=== PATIENT | male | born 1950 | race African-American/Black ===

== ENCOUNTER 2017-01-04 18:28 | Inpatient (IN) | payer BC, OTHER ==
[~2017-01-04] VITALS: Ht 210.8 cm; Wt 154.2 kg
[~2017-01-04 18:28] MED LIST: AMLO10TA80 PO; CARV6.2548 PO; CLON0.1T PO; COLC0.6T66 PO; ENTRESTO PO; FURO-151 PO; LETAIRIS PO; LINA5TAB PO; RIVA10TA PO; TAMS-11 PO; VALS160T2 PO
[2017-01-04] MEDS ORDERED: CETI10TA6 PO (18:33)
[2017-01-04] MEDS ORDERED: RIVA10TA PO (18:33)
[2017-01-04] MEDS ORDERED: CLON0.1T PO (18:33)
[2017-01-04] MEDS ORDERED: LINA5TAB PO (18:33)
[2017-01-04] MEDS ORDERED: SPIR25TA4 PO (18:33)
[2017-01-04] MEDS ORDERED: NAPROXEN 500MG TABLET PO ONE (18:45)
[2017-01-04] MEDS ORDERED: COLCHICINE 0.6MG TABLET PO ONE (18:45)
[2017-01-04 23:51] LABS: BASOPHILS % 0.7 % (0.0-2.0); EOSINOPHILS % 0.4 % (0.0-5.0); HEMATOCRIT. 40.3 % (42.0-52.0); HEMOGLOBIN. 13.3 g/dL (14.0-18.0); LYMPHOCYTES % 16.9 % (20.0-50.0); MEAN CORPUSCULAR HEMOGLOBIN 29.2 pg (28.0-32.0); MEAN CORPUSCULAR VOLUME 88.7 fL (80.0-94.0); MEAN PLATELET VOLUME 8.1 fl (7.4-10.4); MONOCYTES % 11.5 % (2.0-8.0); NEUTROPHILS % 70.5 % (40.0-76.0); PLATELET 163 x1000/uL (130-400); RED BLOOD CELL COUNT 4.54 mill/uL (4.7-6.1)
[2017-01-05 00:20] LABS: CARBON DIOXIDE 26 mEq/L (21-32); CHLORIDE 104 mEq/L (98-107); TROPONIN I < 0.02 ng/mL (0.00-0.04)
[2017-01-05] MEDS ORDERED: POTASSIUM CHLORIDE 20MEQ TABLET SR PO ONE (02:45)
[2017-01-05 04:35] VITALS: BP 138/97
[2017-01-05] MEDS ORDERED: ACETAMINOPHEN 325MG TABLET PO PRN (06:15)
[2017-01-05] MEDS ORDERED: HYDROCODONE/ACETAMINOPHEN 5/325MG TABLET PO PRN (06:15)
[2017-01-05] MEDS ORDERED: ONDANSETRON HCL 4MG/2ML VIAL IV PRN (06:15)
[2017-01-05 08:00] VITALS: BP 114/63
[2017-01-05] MEDS ORDERED: VANCOMYCIN 2,000 MG in DEXT 5% WATER 500 ML IV SCH (08:00)
[2017-01-05] MEDS ORDERED: CLONIDINE 0.1MG TABLET PO PRN (08:00)
[2017-01-05] MEDS: FUROSEMIDE 40MG/4ML VIAL IVP SCH ×2 (08:43→13:10)
[2017-01-05] MEDS: CETIRIZINE 10MG TABLET PO SCH (08:43)
[2017-01-05] MEDS: COLCHICINE 0.6MG TABLET PO SCH (08:43)
[2017-01-05] MEDS: LINAGLIPTIN 5MG TABLET PO SCH (08:44)
[2017-01-05] MEDS: CARVEDILOL 6.25 MG TABLET PO SCH ×2 (08:47→20:57)
[2017-01-05] MEDS ORDERED: CLONIDINE 0.1MG TABLET PO SCH (09:00)
[2017-01-05] MEDS ORDERED: NON FORMULARY PATIENT HOME MED EA XX SCH ×2 (09:00)
[2017-01-05] MEDS ORDERED: DEXTROSE 50% WATER 50ML SYRINGE IV PRN (09:30)
[2017-01-05 11:23] LABS: HEPATITIS B SURFACE ANTIGEN NEGATIVE
[2017-01-05 11:51] LABS: HEPATITIS B CORE AB IGM NEGATIVE
[2017-01-05 12:00] VITALS: BP 123/73
[2017-01-05] MEDS: BLOOD SUGAR DIAGNOSTIC STRIP TEST SCH ×3 (12:05→20:58)
[2017-01-05] MEDS: INSULIN LISPRO 100 UNITS/ML SUBCUT SCH ×3 (12:05→21:00)
[2017-01-05] MEDS ORDERED: COLCHICINE 0.6MG TABLET PO NR (13:00)
[2017-01-05 16:00] VITALS: BP 107/76
[2017-01-05] MEDS ORDERED: TAMS-11 PO (16:42)
[2017-01-05] MEDS ORDERED: SPIR25TA4 PO (16:42)
[2017-01-05] MEDS ORDERED: CETI10TA6 PO (16:42)
[2017-01-05] MEDS ORDERED: AMLO10TA80 PO (16:42)
[2017-01-05] MEDS ORDERED: CARV6.2548 PO (16:42)
[2017-01-05] MEDS ORDERED: VALS160T2 PO (16:42)
[2017-01-05] MEDS ORDERED: FURO-151 PO (16:42)
[2017-01-05] MEDS ORDERED: CLON0.1T PO (16:42)
[2017-01-05] MEDS ORDERED: LETAIRIS PO (16:42)
[2017-01-05] MEDS ORDERED: COLC0.6T66 PO (16:42)
[2017-01-05] MEDS ORDERED: LINA5TAB PO (16:42)
[2017-01-05] MEDS ORDERED: ENTRESTO PO (16:44)
[2017-01-05] MEDS ORDERED: RIVA10TA PO (16:44)
[2017-01-05] MEDS: RIVAROXABAN 15 MG TABLET PO SCH (17:34)
[2017-01-05 20:00] VITALS: BP 117/74
[2017-01-05] MEDS ORDERED: VANCOMYCIN 750 MG PREMIX 150 ML IV SCH (20:00)
[2017-01-05 20:28] LABS: BASOPHILS % 0.2 % (0.0-2.0); CHLORIDE 103 mEq/L (98-107); EOSINOPHILS % 1.1 % (0.0-5.0); HEMATOCRIT. 41.8 % (42.0-52.0); HEMOGLOBIN. 13.8 g/dL (14.0-18.0); MEAN CORPUSCULAR HEMOGLOBIN 29.2 pg (28.0-32.0); MEAN CORPUSCULAR VOLUME 88.6 fL (80.0-94.0); MEAN PLATELET VOLUME 8.6 fl (7.4-10.4); MONOCYTES % 10.1 % (2.0-8.0); NEUTROPHILS % 70.6 % (40.0-76.0); PLATELET 162 x1000/uL (130-400); RED BLOOD CELL COUNT 4.71 mill/uL (4.7-6.1); RED CELL DISTRIBUTION WIDTH 13.7 % (11.6-14.6)
[2017-01-05 20:38] LABS: CARBON DIOXIDE 28 mEq/L (21-32)
[2017-01-05] MEDS ORDERED: SPIRONOLACTONE 5MG/ML 1ML ORAL SYR(NEO) PO SCH (21:00)
[2017-01-05] MEDS ORDERED: SPIRONOLACTONE 25MG TABLET PO SCH (21:00)
[2017-01-05] MEDS ORDERED: RIVAROXABAN 10 MG TABLET PO SCH (21:00)
[2017-01-05] MEDS ORDERED: TAMSULOSIN HCL 0.4MG SR CAPSULE PO SCH (21:00)
[2017-01-06] VITALS (7 sets, daily range): BP systolic 97–129; BP diastolic 57–92
[2017-01-06] MEDS ORDERED: VANCOMYCIN 1500MG in DEXTROSE 5% WATER 250ML IV SCH (03:00)
[2017-01-06] MEDS: BLOOD SUGAR DIAGNOSTIC STRIP TEST SCH ×3 (07:40→18:06)
[2017-01-06] MEDS: INSULIN LISPRO 100 UNITS/ML SUBCUT SCH ×3 (08:10→18:06)
[2017-01-06] MEDS: CETIRIZINE 10MG TABLET PO SCH (09:00)
[2017-01-06] MEDS: FUROSEMIDE 40MG/4ML VIAL IVP SCH ×2 (09:00→09:26)
[2017-01-06] MEDS: CARVEDILOL 6.25 MG TABLET PO SCH (09:25)
[2017-01-06] MEDS: LINAGLIPTIN 5MG TABLET PO SCH (09:25)
[2017-01-06] MEDS: COLCHICINE 0.6MG TABLET PO SCH (09:25)
[2017-01-06] MEDS ORDERED: POTASSIUM CHLORIDE 20MEQ TABLET SR PO NR (15:45)
[2017-01-06] MEDS ORDERED: FUROSEMIDE 40MG/4ML VIAL IVP SCH (17:15)
[2017-01-06 17:47] LABS: BASOPHILS % 0.3 % (0.0-2.0); EOSINOPHILS % 1.5 % (0.0-5.0); HEMATOCRIT. 41.1 % (42.0-52.0); HEMOGLOBIN. 13.6 g/dL (14.0-18.0); MEAN CORPUSCULAR HEMOGLOBIN 29.6 pg (28.0-32.0); MEAN CORPUSCULAR VOLUME 89.8 fL (80.0-94.0); MEAN PLATELET VOLUME 8.7 fl (7.4-10.4); MONOCYTES % 11.4 % (2.0-8.0); NEUTROPHILS % 67.8 % (40.0-76.0); PLATELET 173 x1000/uL (130-400); RED BLOOD CELL COUNT 4.57 mill/uL (4.7-6.1)
[2017-01-06 17:49] LABS: *AMPHETAMINES SCREEN URINE NEGATIVE (NEGATIVE); *BARBITURATES SCREEN URINE NEGATIVE (NEGATIVE); *BENZODIAZEPINES SCREEN URINE NEGATIVE (NEGATIVE); *COCAINE SCREEN URINE NEGATIVE (NEGATIVE); CANNABINOID URINE SCREEN PRESUMTIVE POSITIVE (NEGATIVE); METHADONE URINE SCREEN NEGATIVE (NEGATIVE); OPIATES URINE SCREEN PRESUMTIVE POSITIVE (NEGATIVE); PHENCYCLIDINE URINE SCREEN NEGATIVE (NEGATIVE)
[2017-01-06 17:57] LABS: INR 1.1; PARTIAL THROMBOPLASTIN TIME 30.6 sec (23.4-31.0); PROTHROMBIN TIME 11.8 sec (9.4-11.6)
[2017-01-06] MEDS: RIVAROXABAN 15 MG TABLET PO SCH (18:00)
[2017-01-06 18:04] LABS: CARBON DIOXIDE 29 mEq/L (21-32); CHLORIDE 102 mEq/L (98-107)
[2017-01-07 15:27] LABS: HEPATITIS A AB IGM NEGATIVE (NEGATIVE)
== END 2017-01-06 20:45 | disposition short-term general hospital (02) | DRG 291 ==
LOC: ER 18:28 → 7WST 01-05 02:58 → ENRESERV 01-05 03:37 → 7WST 01-05 05:55
PROVIDERS: ADMIT Family Medicine; ATTEND Family Medicine
DX: I13.0 Hypertensive heart and chronic kidney disease with heart failure and stage 1 through stage 4 chronic kidney disease, or unspecified chronic kidney disease (principal); E43 Unspecified severe protein-calorie malnutrition; N17.0 Acute kidney failure with tubular necrosis; E11.22 Type 2 diabetes mellitus with diabetic chronic kidney disease; L03.115 Cellulitis of right lower limb; I42.9 Cardiomyopathy, unspecified; L03.116 Cellulitis of left lower limb; I48.91 Unspecified atrial fibrillation; J44.9 Chronic obstructive pulmonary disease, unspecified; E66.01 Morbid (severe) obesity due to excess calories; I50.23 Acute on chronic systolic (congestive) heart failure; R91.1 Solitary pulmonary nodule; D63.1 Anemia in chronic kidney disease; I25.10 Atherosclerotic heart disease of native coronary artery without angina pectoris; M10.9 Gout, unspecified; N18.9 Chronic kidney disease, unspecified; N40.0 Benign prostatic hyperplasia without lower urinary tract symptoms; Z88.0 Allergy status to penicillin; Z68.34 Body mass index [BMI] 34.0-34.9, adult; Z79.899 Other long term (current) drug therapy; Z91.14 Patient's other noncompliance with medication regimen; Z95.810 Presence of automatic (implantable) cardiac defibrillator; Z87.891 Personal history of nicotine dependence; Z86.73 Personal history of transient ischemic attack (TIA), and cerebral infarction without residual deficits; Z82.3 Family history of stroke; Z82.49 Family history of ischemic heart disease and other diseases of the circulatory system
CPT/HCPCS: 36415; 71010; 71250; 73620; 74176; 76770; 80053; 80305; 82962; 83036; 83880; 84484; 84550; 85025; 85610; 85651; 85730; 86705; 86709; 86803; 87040; 87340; 93005; 99285; J1940; J3370; J7040; J7060

== ENCOUNTER 2018-12-31 11:20 | Emergency (ER) | payer BC, OTHER ==
[~2018-12-31] VITALS: Ht 185.4 cm; Wt 145.0 kg
[~2018-12-31 11:20] MED LIST changes: +CETI10TA6 PO; +SPIR25TA6 PO
[2018-12-31] MEDS ORDERED: FUROSEMIDE 40MG/4ML VIAL IV ONE (12:15)
[2018-12-31] MEDS ORDERED: ASPIRIN 81MG TABLET PO ONE (12:15)
[2018-12-31] MEDS ORDERED: NITROGLYCERIN 0.4MG TABLET SL SL PRN (12:15)
[2018-12-31 12:53] LABS: EOSINOPHILS % 5.5 % (0.0-5.0); HEMOGLOBIN. 13.6 g/dL (14.0-18.0); LYMPHOCYTES % 23.5 % (20.0-50.0); MEAN CORPUSCULAR HEMOGLOBIN 30.6 pg (28.0-32.0); MEAN CORPUSCULAR VOLUME 92.1 fL (80.0-94.0); MEAN PLATELET VOLUME 7.9 fl (7.4-10.4); MONOCYTES % 8.1 % (2.0-8.0); NEUTROPHILS % 61.9 % (40.0-76.0); PLATELET 162 x1000/uL (130-400); RED BLOOD CELL COUNT 4.45 mill/uL (4.7-6.1); RED CELL DISTRIBUTION WIDTH 13.6 % (11.6-14.6)
[2018-12-31 13:00] LABS: CHLORIDE 108 mEq/L (98-107)
[2018-12-31 19:07] VITALS: BP 116/83
== END 2018-12-31 19:09 | disposition short-term general hospital (02) ==
LOC: ER 11:20
DX: I50.9 Heart failure, unspecified (principal); I45.10 Unspecified right bundle-branch block; N28.9 Disorder of kidney and ureter, unspecified; J44.9 Chronic obstructive pulmonary disease, unspecified; Z88.0 Allergy status to penicillin
CPT/HCPCS: 36415; 71045; 80053; 83880; 84484; 85025; 93005; 96374; 99285; J1940

== ENCOUNTER 2020-12-02 05:32 | Inpatient (IN) | payer BC, MEDICAID ==
[~2020-12-02] VITALS: Ht 185.4 cm; Wt 141.5 kg
[~2020-12-02 05:32] MED LIST changes: +ALLO100T MT; +GLIP5TAB12 MT
[2020-12-02] MEDS ORDERED: ACETAMINOPHEN 325MG TABLET PO STA (06:03)
[2020-12-02] MEDS ORDERED: CEFTRIAXONE 1 G PREMIX 50 ML IV ONE (06:15)
[2020-12-02 06:45] LABS: BASOPHILS % 0.6 % (0.0-2.0); EOSINOPHILS % 1.4 % (0.0-5.0); HEMATOCRIT. 36.1 % (42.0-52.0); HEMOGLOBIN. 11.8 g/dL (14.0-18.0); LYMPHOCYTES % 18.5 % (20.0-50.0); MEAN CORPUSCULAR VOLUME 88.8 fL (80.0-94.0); MEAN PLATELET VOLUME 8.3 fl (7.4-10.4); MONOCYTES % 11.9 % (2.0-8.0); NEUTROPHILS % 67.6 % (40.0-76.0); PLATELET 176 x1000/uL (130-400); RED BLOOD CELL COUNT 4.07 mill/uL (4.7-6.1); RED CELL DISTRIBUTION WIDTH 14.6 % (11.6-14.6)
[2020-12-02] MEDS ORDERED: ONDANSETRON HCL 4MG/2ML INJ IV PRN (10:45)
[2020-12-02] MEDS ORDERED: CEFTRIAXONE 1 G PREMIX 50 ML IV SCH (10:45)
[2020-12-02] MEDS ORDERED: ACETAMINOPHEN 325MG TABLET PO PRN (10:45)
[2020-12-02] MEDS: AMLODIPINE 10MG TABLET PO SCH (11:04)
[2020-12-02] MEDS ORDERED: VANCOMYCIN 1 G PREMIX 200 ML IV NR ×2 (11:15→14:00)
[2020-12-02 11:30] VITALS: BP 172/100
[2020-12-02] MEDS: METHYLPREDNISOLONE SOD SUCC 40 MG/ML VIAL IV SCH ×2 (13:00→20:29)
[2020-12-02] MEDS: FUROSEMIDE 40MG/4ML VIAL IVP SCH (13:00)
[2020-12-02 13:22] VITALS: BP 172/100
[2020-12-02] MEDS ORDERED: CLONIDINE 0.2MG TABLET PO PRN (13:30)
[2020-12-02] MEDS ORDERED: LOSARTAN POTASSIUM 25 MG TABLET PO SCH (13:30)
[2020-12-02] MEDS: CLONIDINE 0.1MG TABLET PO PRN (14:05)
[2020-12-02] MEDS ORDERED: DILTIAZEM HCL 5MG/ML 5ML VIAL IV NR (15:00)
[2020-12-02] MEDS ORDERED: HYDROCODONE/ACETAMINOPHEN 5/325MG TABLET PO PRN (15:30)
[2020-12-02] MEDS ORDERED: NALOXONE HCL 0.4MG/ML VIAL IV PRN (15:45)
[2020-12-02] MEDS ORDERED: VANCOMYCIN 2,000 MG in DEXT 5% WATER 500 ML IV NR (16:00)
[2020-12-02 16:20] VITALS: BP 177/111
[2020-12-02] MEDS ORDERED: RIVAROXABAN 20 MG TABLET PO SCH (17:00)
[2020-12-02] MEDS: ENOXAPARIN 150MG/ML SYR SUBCUT SCH (18:11)
[2020-12-02 20:00] VITALS: BP 150/99
[2020-12-02] MEDS: CARVEDILOL 12.5MG TABLET PO SCH (20:30)
[2020-12-02] MEDS: FAMOTIDINE 20MG TABLET PO SCH (20:30)
[2020-12-02] MEDS ORDERED: LOSARTAN POTASSIUM 50 MG TABLET PO SCH (21:00)
[2020-12-02] MEDS ORDERED: CARVEDILOL 6.25 MG TABLET PO SCH (21:00)
[2020-12-03] VITALS (7 sets, daily range): BP systolic 125–161; BP diastolic 58–110
[2020-12-03] MEDS: CLONIDINE 0.1MG TABLET PO PRN (00:03)
[2020-12-03] MEDS: METHYLPREDNISOLONE SOD SUCC 40 MG/ML VIAL IV SCH ×3 (04:03→20:00)
[2020-12-03] MEDS: ENOXAPARIN 150MG/ML SYR SUBCUT SCH (05:26)
[2020-12-03 07:20] LABS: D-DIMER 0.46 mg/L FEU (<0.50); INR 1.2; PROTHROMBIN TIME 12.4 sec (9.6-11.0)
[2020-12-03 07:27] LABS: BASOPHILS % 0.1 % (0.0-2.0); HEMATOCRIT. 36.3 % (42.0-52.0); LYMPHOCYTES % 9.4 % (20.0-50.0); MEAN CORPUSCULAR HEMOGLOBIN 29.5 pg (28.0-32.0); MEAN CORPUSCULAR VOLUME 88.9 fL (80.0-94.0); MEAN PLATELET VOLUME 8.7 fl (7.4-10.4); MONOCYTES % 2.5 % (2.0-8.0); PLATELET 178 x1000/uL (130-400); RED BLOOD CELL COUNT 4.08 mill/uL (4.7-6.1); RED CELL DISTRIBUTION WIDTH 14.4 % (11.6-14.6)
[2020-12-03 07:31] LABS: CHLORIDE 108 mEq/L (98-107)
[2020-12-03] MEDS ORDERED: CEFTRIAXONE 1,000 MG in DEXTROSE 5% WATER 50 ML IV SCH (09:00)
[2020-12-03] MEDS ORDERED: LOSARTAN POTASSIUM 25 MG TABLET PO SCH (09:00)
[2020-12-03] MEDS: FUROSEMIDE 40MG/4ML VIAL IVP SCH (09:18)
[2020-12-03] MEDS: CARVEDILOL 12.5MG TABLET PO SCH ×2 (09:18→16:47)
[2020-12-03] MEDS: FAMOTIDINE 20MG TABLET PO SCH (09:18)
[2020-12-03] MEDS: AMLODIPINE 10MG TABLET PO SCH (09:19)
[2020-12-03] MEDS ORDERED: VANCOMYCIN 1250MG in DEXTROSE 5% WATER 250ML IV SCH ×2 (12:00→20:00)
[2020-12-03] MEDS ORDERED: DEXTROSE 50% WATER 50ML SYRINGE IV PRN (12:45)
[2020-12-03] MEDS: INSULIN LISPRO 100 UNITS/ML SUBCUT SCH ×2 (13:31→17:10)
[2020-12-03] MEDS ORDERED: CLONIDINE 0.1MG TABLET PO NR (15:00)
[2020-12-03] MEDS ORDERED: LOSARTAN POTASSIUM 25 MG TABLET PO NR (15:00)
[2020-12-03] MEDS ORDERED: BLOOD SUGAR DIAGNOSTIC STRIP TEST SCH (17:10)
[2020-12-03] MEDS ORDERED: ENOXAPARIN 150MG/ML SYR SUBCUT SCH (21:00)
== END 2020-12-03 21:35 | disposition home or self-care (01) | DRG 602 ==
LOC: ER 06:00 → ENRESERV 10:32 → 6EST 12:26 → 8WST 14:32
PROVIDERS: ADMIT Internal Medicine; ATTEND Internal Medicine
DX: L03.115 Cellulitis of right lower limb (principal); I50.23 Acute on chronic systolic (congestive) heart failure; I13.0 Hypertensive heart and chronic kidney disease with heart failure and stage 1 through stage 4 chronic kidney disease, or unspecified chronic kidney disease; I48.21 Permanent atrial fibrillation; Z68.41 Body mass index [BMI] 40.0-44.9, adult; N17.9 Acute kidney failure, unspecified; M10.9 Gout, unspecified; L03.116 Cellulitis of left lower limb; E11.22 Type 2 diabetes mellitus with diabetic chronic kidney disease; N18.9 Chronic kidney disease, unspecified; I25.5 Ischemic cardiomyopathy; J44.9 Chronic obstructive pulmonary disease, unspecified; E66.01 Morbid (severe) obesity due to excess calories; I16.0 Hypertensive urgency; D64.9 Anemia, unspecified; I25.10 Atherosclerotic heart disease of native coronary artery without angina pectoris; K46.9 Unspecified abdominal hernia without obstruction or gangrene; I25.2 Old myocardial infarction; Z79.01 Long term (current) use of anticoagulants; Z95.810 Presence of automatic (implantable) cardiac defibrillator; Z88.0 Allergy status to penicillin; Z79.899 Other long term (current) drug therapy; Z95.5 Presence of coronary angioplasty implant and graft
CPT/HCPCS: 36415; 71045; 73610; 80048; 82962; 83605; 83735; 83880; 84145; 84484; 84550; 85025; 85379; 93005; 93970; 99285; J0696; J1650; J1815; J1940; J2920; J3370; J3490; J7060

== ENCOUNTER 2021-08-14 12:00 | Emergency (ER) | payer BC, MEDICAID ==
[~2021-08-14] VITALS: Ht 180.3 cm; Wt 140.0 kg
[2021-08-14 12:15] VITALS: BP 148/88
[2021-08-14] MEDS ORDERED: ACETAMINOPHEN 325MG TABLET PO ONE (14:45)
[2021-08-14 15:14] LABS: BASOPHILS % 0.7 % (0.0-2.0); EOSINOPHILS % 2.4 % (0.0-5.0); HEMOGLOBIN. 14.2 g/dL (14.0-18.0); LYMPHOCYTES % 31.8 % (20.0-50.0); MEAN CORPUSCULAR HEMOGLOBIN 27.7 pg (28.0-32.0); MEAN CORPUSCULAR VOLUME 86.1 fL (80.0-94.0); MEAN PLATELET VOLUME 8.1 fl (7.4-10.4); MONOCYTES % 10.4 % (2.0-8.0); NEUTROPHILS % 54.7 % (40.0-76.0); PLATELET 194 x1000/uL (130-400); RED BLOOD CELL COUNT 5.11 mill/uL (4.7-6.1); RED CELL DISTRIBUTION WIDTH 15.2 % (11.6-14.6)
[2021-08-14 15:22] LABS: INR 1.1; PARTIAL THROMBOPLASTIN TIME 27.4 sec (23.4-31.0); PROTHROMBIN TIME 11.9 sec (9.6-11.0)
[2021-08-14 15:25] LABS: CHLORIDE 108 mEq/L (98-107)
[2021-08-14] MEDS ORDERED: TOPUD MT (16:47)
[2021-08-14] MEDS ORDERED: ACETAMINOPHEN 325MG TABLET PO NR (17:00)
== END 2021-08-14 17:12 | disposition home or self-care (01) ==
LOC: ER 12:00
DX: R51.9 Headache, unspecified (principal); E11.9 Type 2 diabetes mellitus without complications; Z79.899 Other long term (current) drug therapy; W18.30XA Fall on same level, unspecified, initial encounter; Y93.89 Activity, other specified; Y92.89 Other specified places as the place of occurrence of the external cause; Y99.8 Other external cause status
CPT/HCPCS: 36415; 72192; 73110; 73130; 73560; 80053; 85025; 86850; 86900; 93005; 99285

== ENCOUNTER 2021-09-29 06:58 | Inpatient (IN) | payer BC, MEDICAID, MEDICARE ==
[~2021-09-29] VITALS: Ht 185.4 cm; Wt 145.1 kg
[~2021-09-29 06:58] MED LIST changes: +TOPUD MT
[2021-09-29] MEDS ORDERED: SODIUM CHLORIDE 0.9% 1000ML BAG (SEPSIS BOLUS) IV ONE (07:15)
[2021-09-29 07:39] LABS: BASOPHILS % 0.7 % (0.0-2.0); EOSINOPHILS % 1.5 % (0.0-5.0); HEMATOCRIT. 34.9 % (42.0-52.0); HEMOGLOBIN. 10.8 g/dL (14.0-18.0); LYMPHOCYTES % 39.6 % (20.0-50.0); MEAN CORPUSCULAR HEMOGLOBIN 27.7 pg (28.0-32.0); MEAN CORPUSCULAR VOLUME 89.3 fL (80.0-94.0); MEAN PLATELET VOLUME 8.5 fl (7.4-10.4); MONOCYTES % 6.8 % (2.0-8.0); NEUTROPHILS % 51.4 % (40.0-76.0); PLATELET 185 x1000/uL (130-400); RED BLOOD CELL COUNT 3.91 mill/uL (4.7-6.1); RED CELL DISTRIBUTION WIDTH 15.9 % (11.6-14.6)
[2021-09-29 07:48] LABS: CHLORIDE 106 mEq/L (98-107)
[2021-09-29 07:50] LABS: INR 1.2; PROTHROMBIN TIME 12.7 sec (9.6-11.0)
[2021-09-29 07:58] LABS: CREATINE KINASE 76 IU/L (39-308)
[2021-09-29 08:20] LABS: BG BASE EXCESS -0.5 mmol/L (-2.0-2.0); BG CARBOXYHEMOGLOBIN 0.3 % (0.5-1.5); BG DEOXYHEMOGLOBIN 3.7 % (0.0-5.0); BG FRACTION INSPIRED OXYGEN 21; BG METHEMOGLOBIN 0.3 % (0.0-1.5); BG OXYGEN SATURATION 96.3 % (92.0-98.5); BG OXYHEMOGLOBIN 95.7 % (94.0-97.0); BG PCO2 33.6 mmHg (35.0-45.0); BG PH 7.453 (7.350-7.450); BG PO2 87.4 mmHg (75.0-100.0); BG SAMPLE SITE RIGHT BRACHIAL; BG TOTAL HEMOGLOBIN 10.5 g/dL (12.0-18.0); BG VENT MODE ROOM AIR
[2021-09-29] MEDS ORDERED: ONDANSETRON HCL 4MG/2ML INJ IV ONE (09:30)
[2021-09-29] MEDS ORDERED: PANTOPRAZOLE SODIUM 40 MG/VIAL IV ONE (09:30)
[2021-09-29] MEDS ORDERED: METRONIDAZOLE 500 MG PREMIX 100 ML IV ONE (10:45)
[2021-09-29] MEDS ORDERED: LEVOFLOXACIN 500MG PREMIX 100 ML IV ONE (10:45)
[2021-09-29] MEDS ORDERED: DEXTROSE 50% WATER 50ML SYRINGE IV PRN (12:00)
[2021-09-29] MEDS ORDERED: PANTOPRAZOLE SODIUM 40 MG/VIAL IV SCH (12:00)
[2021-09-29] MEDS ORDERED: ENOXAPARIN 40MG/0.4ML SYR SUBCUT SCH (12:00)
[2021-09-29] MEDS ORDERED: ACETAMINOPHEN 325MG TABLET PO PRN (12:00)
[2021-09-29] MEDS ORDERED: LEVOFLOXACIN 500MG PREMIX 100 ML IV SCH (12:00)
[2021-09-29] MEDS ORDERED: ONDANSETRON HCL 4MG/2ML INJ IV PRN (12:00)
[2021-09-29] MEDS ORDERED: IPRATROPIUM/ALBUTEROL 0.5-3(2.5)MG/3ML NEB NEB PRN (12:00)
[2021-09-29] MEDS ORDERED: LEVOFLOXACIN 250MG PREMIX 50 ML IV NR ×2 (13:00→15:00)
[2021-09-29] MEDS: BLOOD SUGAR DIAGNOSTIC STRIP TEST SCH ×3 (13:00→20:47)
[2021-09-29] MEDS ORDERED: METRONIDAZOLE 500 MG PREMIX 100 ML IV SCH (13:00)
[2021-09-29 13:31] LABS: CREATINE KINASE 56 IU/L (39-308); CREATINE KINASE MB FRACTION 1.8 ng/mL (0.5-3.6)
[2021-09-29 14:02] VITALS: BP 114/89
[2021-09-29] MEDS: INSULIN LISPRO 100 UNITS/ML SUBCUT SCH ×3 (14:22→20:50)
[2021-09-29] MEDS: METRONIDAZOLE 500 MG PREMIX 100 ML IV SCH ×2 (15:22→21:25)
[2021-09-29 16:04] VITALS: BP 116/68
[2021-09-29 16:08] VITALS: BP 116/68
[2021-09-29 17:44] VITALS: BP 106/69
[2021-09-29] MEDS: CARVEDILOL 6.25 MG TABLET PO SCH (17:44)
[2021-09-29 20:00] VITALS: BP 102/76
[2021-09-29] MEDS: TAMSULOSIN HCL 0.4MG SR CAPSULE PO SCH (20:47)
[2021-09-29] MEDS: RIVAROXABAN 15 MG TABLET PO SCH (20:47)
[2021-09-29] MEDS: PANTOPRAZOLE 40MG DR TABLET PO SCH (20:47)
[2021-09-29 22:00] VITALS: BP 100/72
[2021-09-30] VITALS (11 sets, daily range): BP systolic 98–128; BP diastolic 60–94
[2021-09-30 00:08] LABS: CLARITY URINE CLEAR (CLEAR); COLOR URINE YELLOW (YELLOW); KETONES URINE NEGATIVE (NEGATIVE); LEUKOCYTE ESTERASE URINE TRACE (NEGATIVE); NITRITE URINE NEGATIVE (NEGATIVE); OCCULT BLOOD URINE NEGATIVE (NEGATIVE); PROTEIN URINE NEGATIVE (NEGATIVE); SPECIFIC GRAVITY URINE 1.013 (1.005-1.030); UROBILINOGEN URINE 0.2 E.U./dL (0.2-1.0)
[2021-09-30 00:45] LABS: CREATINE KINASE MB FRACTION 1.8 ng/mL (0.5-3.6)
[2021-09-30] MEDS: METRONIDAZOLE 500 MG PREMIX 100 ML IV SCH ×3 (06:28→20:37)
[2021-09-30] MEDS: BLOOD SUGAR DIAGNOSTIC STRIP TEST SCH ×4 (06:28→20:36)
[2021-09-30] MEDS: PANTOPRAZOLE 40MG DR TABLET PO SCH ×2 (06:28→20:36)
[2021-09-30 06:51] LABS: BASOPHILS % 0.4 % (0.0-2.0); EOSINOPHILS % 1.6 % (0.0-5.0); HEMATOCRIT. 27.2 % (42.0-52.0); HEMOGLOBIN. 9.1 g/dL (14.0-18.0); LYMPHOCYTES % 33.3 % (20.0-50.0); MEAN CORPUSCULAR HEMOGLOBIN 28.7 pg (28.0-32.0); MEAN CORPUSCULAR VOLUME 85.7 fL (80.0-94.0); MEAN PLATELET VOLUME 8.3 fl (7.4-10.4); MONOCYTES % 9.5 % (2.0-8.0); NEUTROPHILS % 55.2 % (40.0-76.0); PLATELET 144 x1000/uL (130-400); RED BLOOD CELL COUNT 3.17 mill/uL (4.7-6.1); RED CELL DISTRIBUTION WIDTH 15.8 % (11.6-14.6)
[2021-09-30] MEDS: INSULIN LISPRO 100 UNITS/ML SUBCUT SCH ×4 (07:20→20:41)
[2021-09-30] MEDS ORDERED: FUROSEMIDE 40MG/4ML VIAL IVP SCH (09:00)
[2021-09-30] MEDS: AMLODIPINE 5MG TABLET PO SCH (10:04)
[2021-09-30] MEDS: CARVEDILOL 6.25 MG TABLET PO SCH ×2 (10:04→18:12)
[2021-09-30] MEDS: COLCHICINE 0.6MG TABLET PO SCH (10:04)
[2021-09-30] MEDS: CLONIDINE 0.1MG TABLET PO SCH (10:04)
[2021-09-30] MEDS: ALLOPURINOL 100 MG TABLET PO SCH (10:05)
[2021-09-30] MEDS ORDERED: POTASSIUM CHLORIDE 20MEQ TABLET SR PO NR (11:00)
[2021-09-30] MEDS: TAMSULOSIN HCL 0.4MG SR CAPSULE PO SCH (20:36)
[2021-09-30] MEDS: RIVAROXABAN 15 MG TABLET PO SCH (20:36)
[2021-10-01] VITALS (8 sets, daily range): BP systolic 112–142; BP diastolic 66–96
[2021-10-01] MEDS: BLOOD SUGAR DIAGNOSTIC STRIP TEST SCH ×2 (05:56→11:28)
[2021-10-01] MEDS: METRONIDAZOLE 500 MG PREMIX 100 ML IV SCH (05:56)
[2021-10-01] MEDS: PANTOPRAZOLE 40MG DR TABLET PO SCH (05:56)
[2021-10-01] MEDS: INSULIN LISPRO 100 UNITS/ML SUBCUT SCH ×2 (06:24→11:28)
[2021-10-01 07:09] LABS: BASOPHILS % 0.5 % (0.0-2.0); EOSINOPHILS % 2.2 % (0.0-5.0); HEMATOCRIT. 27.4 % (42.0-52.0); HEMOGLOBIN. 8.6 g/dL (14.0-18.0); LYMPHOCYTES % 33.9 % (20.0-50.0); MEAN CORPUSCULAR HEMOGLOBIN 28.7 pg (28.0-32.0); MEAN PLATELET VOLUME 8.3 fl (7.4-10.4); MONOCYTES % 8.4 % (2.0-8.0); PLATELET 144 x1000/uL (130-400); RED BLOOD CELL COUNT 3.01 mill/uL (4.7-6.1); RED CELL DISTRIBUTION WIDTH 15.6 % (11.6-14.6)
[2021-10-01] MEDS: COLCHICINE 0.6MG TABLET PO SCH (09:35)
[2021-10-01] MEDS: ALLOPURINOL 100 MG TABLET PO SCH (09:36)
[2021-10-01] MEDS: CLONIDINE 0.1MG TABLET PO SCH (09:36)
[2021-10-01] MEDS: CARVEDILOL 6.25 MG TABLET PO SCH (09:36)
[2021-10-01] MEDS: AMLODIPINE 5MG TABLET PO SCH (09:36)
[2021-10-01] MEDS ORDERED: LEVOFLOXACIN 500MG TABLET PO SCH (11:00)
[2021-10-01] MEDS ORDERED: LEVOFLOXACIN 750MG PREMIX 150 ML IV SCH (13:00)
[2021-10-02] MEDS ORDERED: METRONIDAZOLE 500MG TABLET PO SCH (06:00)
== END 2021-10-01 16:45 | disposition home or self-care (01) | DRG 392 ==
LOC: ER 06:58 → 3WST 11:21 → EDBEDREQ 11:29 → EDBEDREQTM 11:29 → ENRESERV 11:35
PROVIDERS: ADMIT Internal Medicine Pulmonary Disease; ATTEND Internal Medicine Pulmonary Disease
DX: K52.9 Noninfective gastroenteritis and colitis, unspecified (principal); N17.9 Acute kidney failure, unspecified; I42.0 Dilated cardiomyopathy; I48.20 Chronic atrial fibrillation, unspecified; I50.22 Chronic systolic (congestive) heart failure; E44.1 Mild protein-calorie malnutrition; Z68.42 Body mass index [BMI] 45.0-49.9, adult; I11.0 Hypertensive heart disease with heart failure; J44.9 Chronic obstructive pulmonary disease, unspecified; E66.01 Morbid (severe) obesity due to excess calories; E11.9 Type 2 diabetes mellitus without complications; R79.89 Other specified abnormal findings of blood chemistry; E78.00 Pure hypercholesterolemia, unspecified; Z95.810 Presence of automatic (implantable) cardiac defibrillator; Z83.3 Family history of diabetes mellitus; Z79.4 Long term (current) use of insulin; Z79.899 Other long term (current) drug therapy; Z88.0 Allergy status to penicillin; I95.89 Other hypotension
CPT/HCPCS: 36415; 36600; 71045; 74176; 80048; 80053; 81003; 82375; 82550; 82553; 82805; 82962; 83605; 83735; 83880; 84145; 84484; 85025; 86850; 86900; 93005; 93970; 99291; C9113; J1815; J1956; J2405; J3490; J7030

== ENCOUNTER 2021-10-02 21:47 | Inpatient (IN) | payer BC, MEDICAID ==
[~2021-10-02] VITALS: Ht 185.4 cm; Wt 138.0 kg
[2021-10-02] MEDS ORDERED: SODIUM CHLORIDE 0.9% 1,000 ML IV ONE (22:15)
[2021-10-02 23:49] LABS: BASOPHILS % 0.5 % (0.0-2.0); EOSINOPHILS % 0.9 % (0.0-5.0); HEMATOCRIT. 25.6 % (42.0-52.0); HEMOGLOBIN. 8.1 g/dL (14.0-18.0); MEAN CORPUSCULAR HEMOGLOBIN 27.9 pg (28.0-32.0); MEAN CORPUSCULAR VOLUME 87.9 fL (80.0-94.0); MEAN PLATELET VOLUME 7.7 fl (7.4-10.4); MONOCYTES % 8.6 % (2.0-8.0); PLATELET 205 x1000/uL (130-400); RED BLOOD CELL COUNT 2.92 mill/uL (4.7-6.1); RED CELL DISTRIBUTION WIDTH 16.2 % (11.6-14.6)
[2021-10-02 23:57] LABS: CHLORIDE 104 mEq/L (98-107)
[2021-10-03] VITALS (9 sets, daily range): BP systolic 95–135; BP diastolic 55–91
[2021-10-03 00:02] LABS: CLARITY URINE CLEAR (CLEAR); COLOR URINE YELLOW (YELLOW); KETONES URINE TRACE (NEGATIVE); LEUKOCYTE ESTERASE URINE TRACE (NEGATIVE); NITRITE URINE NEGATIVE (NEGATIVE); OCCULT BLOOD URINE NEGATIVE (NEGATIVE); PROTEIN URINE TRACE (NEGATIVE); SPECIFIC GRAVITY URINE 1.016 (1.005-1.030)
[2021-10-03] MEDS ORDERED: ONDANSETRON HCL 4MG/2ML INJ IV PRN (06:45)
[2021-10-03] MEDS ORDERED: ZOLPIDEM TARTRATE 5MG TABLET PO PRN (06:45)
[2021-10-03] MEDS ORDERED: ACETAMINOPHEN 325MG TABLET PO PRN (06:45)
[2021-10-03] MEDS: CLONIDINE 0.1MG TABLET PO SCH (08:38)
[2021-10-03] MEDS: CARVEDILOL 6.25 MG TABLET PO SCH ×2 (08:38→20:36)
[2021-10-03] MEDS: LISINOPRIL 20MG TABLET PO SCH (08:39)
[2021-10-03] MEDS: AMLODIPINE 10MG TABLET PO SCH (08:40)
[2021-10-03] MEDS ORDERED: ALLOPURINOL 100 MG TABLET PO SCH (09:00)
[2021-10-03] MEDS: FUROSEMIDE 40MG TABLET PO SCH (09:00)
[2021-10-03] MEDS: LINAGLIPTIN 5MG TABLET PO SCH (09:00)
[2021-10-03 09:47] LABS: BASOPHILS % 0.5 % (0.0-2.0); EOSINOPHILS % 1.6 % (0.0-5.0); HEMATOCRIT. 22.2 % (42.0-52.0); HEMOGLOBIN. 7.1 g/dL (14.0-18.0); LYMPHOCYTES % 31.4 % (20.0-50.0); MEAN CORPUSCULAR HEMOGLOBIN 28.4 pg (28.0-32.0); MEAN CORPUSCULAR VOLUME 88.3 fL (80.0-94.0); MEAN PLATELET VOLUME 8.1 fl (7.4-10.4); MONOCYTES % 9.2 % (2.0-8.0); NEUTROPHILS % 57.3 % (40.0-76.0); PLATELET 190 x1000/uL (130-400); RED BLOOD CELL COUNT 2.51 mill/uL (4.7-6.1); RED CELL DISTRIBUTION WIDTH 16.1 % (11.6-14.6)
[2021-10-03 10:37] LABS: VITAMIN B12 SERUM 306 pg/mL (211-911)
[2021-10-03] MEDS ORDERED: DEXTROSE 50% WATER 50ML SYRINGE IV PRN (11:45)
[2021-10-03] MEDS: BLOOD SUGAR DIAGNOSTIC STRIP TEST SCH ×3 (12:21→20:20)
[2021-10-03] MEDS ORDERED: CARVEDILOL 12.5MG TABLET PO SCH (12:30)
[2021-10-03] MEDS: IRON SUCROSE COMPLEX 100 MG/5 ML ML IV SCH (13:09)
[2021-10-03] MEDS: INSULIN LISPRO 100 UNITS/ML SUBCUT SCH ×3 (13:11→20:35)
[2021-10-03] MEDS: TAMSULOSIN HCL 0.4MG SR CAPSULE PO SCH (20:35)
[2021-10-03] MEDS: SPIRONOLACTONE 25MG TABLET PO SCH (20:36)
[2021-10-03 21:36] LABS: BASOPHILS % 0.7 % (0.0-2.0); HEMATOCRIT. 22.4 % (42.0-52.0); HEMOGLOBIN. 7.1 g/dL (14.0-18.0); LYMPHOCYTES % 30.1 % (20.0-50.0); MEAN CORPUSCULAR HEMOGLOBIN 28.3 pg (28.0-32.0); MEAN CORPUSCULAR VOLUME 89.5 fL (80.0-94.0); MONOCYTES % 10.5 % (2.0-8.0); NEUTROPHILS % 56.7 % (40.0-76.0); PLATELET 206 x1000/uL (130-400); RED CELL DISTRIBUTION WIDTH 16.2 % (11.6-14.6)
[2021-10-03 21:58] LABS: FOLIC ACID (FOLATE) SERUM 12.6 ng/mL (>5.38)
[2021-10-04] VITALS (13 sets, daily range): BP systolic 95–130; BP diastolic 60–87
[2021-10-04 06:27] LABS: BASOPHILS % 0.6 % (0.0-2.0); EOSINOPHILS % 1.9 % (0.0-5.0); HEMATOCRIT. 22.9 % (42.0-52.0); HEMOGLOBIN. 7.5 g/dL (14.0-18.0); LYMPHOCYTES % 31.8 % (20.0-50.0); MEAN CORPUSCULAR HEMOGLOBIN 28.4 pg (28.0-32.0); MEAN CORPUSCULAR VOLUME 86.6 fL (80.0-94.0); MEAN PLATELET VOLUME 7.8 fl (7.4-10.4); MONOCYTES % 9.6 % (2.0-8.0); NEUTROPHILS % 56.1 % (40.0-76.0); PLATELET 183 x1000/uL (130-400); RED BLOOD CELL COUNT 2.65 mill/uL (4.7-6.1); RED CELL DISTRIBUTION WIDTH 16.3 % (11.6-14.6)
[2021-10-04] MEDS: BLOOD SUGAR DIAGNOSTIC STRIP TEST SCH ×4 (07:33→20:13)
[2021-10-04] MEDS: CLONIDINE 0.1MG TABLET PO SCH (08:01)
[2021-10-04] MEDS: CARVEDILOL 6.25 MG TABLET PO SCH ×2 (08:02→20:24)
[2021-10-04] MEDS: LISINOPRIL 20MG TABLET PO SCH (08:02)
[2021-10-04] MEDS: AMLODIPINE 10MG TABLET PO SCH (08:02)
[2021-10-04] MEDS: CYANOCOBALAMIN 1000MCG/ML VIAL IM SCH (08:07)
[2021-10-04] MEDS: LINAGLIPTIN 5MG TABLET PO SCH (08:10)
[2021-10-04] MEDS: INSULIN LISPRO 100 UNITS/ML SUBCUT SCH ×4 (08:10→20:25)
[2021-10-04] MEDS: FUROSEMIDE 40MG TABLET PO SCH (08:10)
[2021-10-04] MEDS ORDERED: LACTULOSE 20G/30ML UDC PO SCH (10:15)
[2021-10-04] MEDS: IRON SUCROSE COMPLEX 100 MG/5 ML ML IV SCH (13:13)
[2021-10-04] MEDS: TAMSULOSIN HCL 0.4MG SR CAPSULE PO SCH (20:23)
[2021-10-04] MEDS: SPIRONOLACTONE 25MG TABLET PO SCH (20:23)
[2021-10-04] MEDS: PANTOPRAZOLE SODIUM 40 MG/VIAL IV SCH (20:23)
[2021-10-04 21:29] LABS: HEMATOCRIT 27.6 % (42.0-52.0); HEMOGLOBIN 8.9 g/dL (14.0-18.0); MEAN CORPUSCULAR HEMOGLOBIN 28.9 pg (28.0-32.0); MEAN CORPUSCULAR VOLUME 89.1 fL (80.0-94.0); PLATELET 195 x1000/uL (130-400); RED CELL DISTRIBUTION WIDTH 15.7 % (11.6-14.6)
[2021-10-04 21:39] LABS: INR 1.1; PROTHROMBIN TIME 11.9 sec (9.6-11.0)
[2021-10-05] VITALS: BP 100/57
[2021-10-05 04:00] VITALS: BP 102/60
[2021-10-05 04:15] LABS: BASOPHILS % 0.5 % (0.0-2.0); HEMATOCRIT. 25.9 % (42.0-52.0); HEMOGLOBIN. 8.5 g/dL (14.0-18.0); LYMPHOCYTES % 28.6 % (20.0-50.0); MEAN CORPUSCULAR HEMOGLOBIN 28.8 pg (28.0-32.0); MEAN CORPUSCULAR VOLUME 87.8 fL (80.0-94.0); MONOCYTES % 9.4 % (2.0-8.0); NEUTROPHILS % 59.5 % (40.0-76.0); PLATELET 193 x1000/uL (130-400); RED BLOOD CELL COUNT 2.95 mill/uL (4.7-6.1); RED CELL DISTRIBUTION WIDTH 15.9 % (11.6-14.6)
[2021-10-05 04:26] LABS: INR 1.1; PROTHROMBIN TIME 11.8 sec (9.6-11.0)
[2021-10-05] MEDS: INSULIN LISPRO 100 UNITS/ML SUBCUT SCH ×2 (07:51→13:10)
[2021-10-05 08:00] VITALS: BP 116/63
[2021-10-05] MEDS: AMLODIPINE 10MG TABLET PO SCH (09:00)
[2021-10-05] MEDS: LISINOPRIL 20MG TABLET PO SCH (09:00)
[2021-10-05] MEDS: LINAGLIPTIN 5MG TABLET PO SCH (09:00)
[2021-10-05] MEDS: CARVEDILOL 6.25 MG TABLET PO SCH (09:00)
[2021-10-05] MEDS: FUROSEMIDE 40MG TABLET PO SCH (09:00)
[2021-10-05] MEDS: CLONIDINE 0.1MG TABLET PO SCH (09:00)
[2021-10-05] MEDS: CYANOCOBALAMIN 1000MCG/ML VIAL IM SCH (09:15)
[2021-10-05] MEDS: PANTOPRAZOLE SODIUM 40 MG/VIAL IV SCH (09:15)
[2021-10-05 11:45] VITALS: BP 101/60
[2021-10-05] MEDS: IRON SUCROSE COMPLEX 100 MG/5 ML ML IV SCH (11:57)
[2021-10-05] MEDS: BLOOD SUGAR DIAGNOSTIC STRIP TEST SCH (13:32)
[2021-10-05] MEDS ORDERED: MIDAZOLAM HCL 2 MG/2 ML VIAL ONE ×2 (15:34→15:35)
[2021-10-05] MEDS ORDERED: PROPOFOL 200MG/20ML VIAL IV ONE (15:35)
[2021-10-05] MEDS ORDERED: ETOMIDATE 2MG/ML 10ML VIAL IV ONE (15:35)
[2021-10-05] MEDS ORDERED: LIDOCAINE HCL 1% 20ML VIAL (Pyxis) INJ ONE (15:35)
[2021-10-05 17:41] VITALS: BP 129/79
[2021-10-05 19:09] VITALS: BP 105/74
[2021-10-05 19:52] LABS: BASOPHILS % 0.4 % (0.0-2.0); HEMATOCRIT. 27.8 % (42.0-52.0); HEMOGLOBIN. 8.9 g/dL (14.0-18.0); LYMPHOCYTES % 26.4 % (20.0-50.0); MEAN CORPUSCULAR VOLUME 90.2 fL (80.0-94.0); MEAN PLATELET VOLUME 7.9 fl (7.4-10.4); MONOCYTES % 9.4 % (2.0-8.0); NEUTROPHILS % 61.8 % (40.0-76.0); PLATELET 214 x1000/uL (130-400); RED BLOOD CELL COUNT 3.09 mill/uL (4.7-6.1); RED CELL DISTRIBUTION WIDTH 16.2 % (11.6-14.6)
== END 2021-10-05 19:56 | disposition home or self-care (01) | DRG 378 ==
LOC: ER 21:47 → 7WST 10-03 03:33 → ENRESERV 10-03 03:59
PROVIDERS: ADMIT Internal Medicine Pulmonary Disease; ATTEND Internal Medicine Pulmonary Disease
PROC: 30233N1 Transfusion of Nonautologous Red Blood Cells into Peripheral Vein, Percutaneous Approach (ICD-10-PCS; 2021-10-03)
PROC: 0DB78ZX Excision of Stomach, Pylorus, Via Natural or Artificial Opening Endoscopic, Diagnostic (ICD-10-PCS; principal; 2021-10-05)
DX: K29.71 Gastritis, unspecified, with bleeding (principal); I13.0 Hypertensive heart and chronic kidney disease with heart failure and stage 1 through stage 4 chronic kidney disease, or unspecified chronic kidney disease; I42.9 Cardiomyopathy, unspecified; I50.22 Chronic systolic (congestive) heart failure; N17.9 Acute kidney failure, unspecified; Z68.41 Body mass index [BMI] 40.0-44.9, adult; D64.9 Anemia, unspecified; J44.9 Chronic obstructive pulmonary disease, unspecified; N18.9 Chronic kidney disease, unspecified; E61.1 Iron deficiency; N40.0 Benign prostatic hyperplasia without lower urinary tract symptoms; K43.9 Ventral hernia without obstruction or gangrene; I48.91 Unspecified atrial fibrillation; G90.8 Other disorders of autonomic nervous system; E11.22 Type 2 diabetes mellitus with diabetic chronic kidney disease; E53.8 Deficiency of other specified B group vitamins; F12.90 Cannabis use, unspecified, uncomplicated; E66.9 Obesity, unspecified; Z20.822 Contact with and (suspected) exposure to COVID-19; Z79.01 Long term (current) use of anticoagulants; Z79.899 Other long term (current) drug therapy; Z88.0 Allergy status to penicillin; Z71.3 Dietary counseling and surveillance; Z87.891 Personal history of nicotine dependence; R91.1 Solitary pulmonary nodule; Z95.0 Presence of cardiac pacemaker
CPT/HCPCS: 36415; 71045; 74176; 80048; 80053; 81003; 82270; 82607; 82728; 82746; 82962; 83010; 83036; 83540; 83550; 83605; 84145; 84443; 84484; 85025; 85027; 85044; 85384; 86850; 86900; 86920; 87015; 87045; 87426; 87427; 87449; 87493; 88305; 88312; 88313; 99291; C9113; J1815; J2250; J2704; J3420; J3490; J7030; P9016

== ENCOUNTER 2022-03-21 07:53 | Emergency (ER) | payer BC, MEDICAID ==
[~2022-03-21] VITALS: Ht 185.4 cm; Wt 139.0 kg
[~2022-03-21 07:53] MED LIST changes: -COLC0.6T66 PO; -ENTRESTO PO; -LETAIRIS PO
[2022-03-21] MEDS ORDERED: ONDANSETRON HCL 4MG/2ML INJ IV STA (08:05)
[2022-03-21] MEDS ORDERED: KETOROLAC 30MG/ML VIAL IV STA (08:05)
[2022-03-21] MEDS ORDERED: SODIUM CHLORIDE 0.9% 1,000 ML IV ONE (08:15)
[2022-03-21] MEDS ORDERED: TOPUD PO (11:06)
[2022-03-21] MEDS ORDERED: METO-293 PO (11:06)
[2022-03-21 17:34] VITALS: BP 103/78
== END 2022-03-21 17:37 | disposition home or self-care (01) ==
LOC: ER 07:53
DX: R51.9 Headache, unspecified (principal); I11.0 Hypertensive heart disease with heart failure; I50.9 Heart failure, unspecified; J44.9 Chronic obstructive pulmonary disease, unspecified; E11.9 Type 2 diabetes mellitus without complications; E78.00 Pure hypercholesterolemia, unspecified; Z88.0 Allergy status to penicillin; Z79.899 Other long term (current) drug therapy
CPT/HCPCS: 70450; 72125; 96361; 96374; 96375; 99284; J1885; J2405; J7030

== ENCOUNTER 2022-04-08 14:20 | Inpatient (IN) | payer BC, MEDICAID ==
[~2022-04-08] VITALS: Ht 185.4 cm; Wt 136.1 kg
[~2022-04-08 14:20] MED LIST changes: +METO-293 PO; +TOPUD PO
[2022-04-08] MEDS ORDERED: METHYLPREDNISOLONE SOD SUCC 125 MG/2 ML VIAL IV STA (16:23)
[2022-04-08] MEDS ORDERED: IPRATROPIUM BROMIDE (0.02%) 0.5MG/2.5ML NEB HHN STA (16:23)
[2022-04-08] MEDS ORDERED: MAGNESIUM 2 G PREMIX 50 ML IV ONE (16:30)
[2022-04-08 16:58] LABS: EOSINOPHILS % 3.6 % (0.0-5.0); HEMATOCRIT. 31.1 % (42.0-52.0); HEMOGLOBIN. 9.2 g/dL (14.0-18.0); LYMPHOCYTES % 29.1 % (20.0-50.0); MEAN CORPUSCULAR HEMOGLOBIN 20.4 pg (28.0-32.0); MEAN CORPUSCULAR VOLUME 69.3 fL (80.0-94.0); MEAN PLATELET VOLUME 8.8 fl (7.4-10.4); MONOCYTES % 9.8 % (2.0-8.0); NEUTROPHILS % 56.5 % (40.0-76.0); PLATELET 240 x1000/uL (130-400); RED BLOOD CELL COUNT 4.49 mill/uL (4.7-6.1); RED CELL DISTRIBUTION WIDTH 21.1 % (11.6-14.6)
[2022-04-08 17:02] LABS: CHLORIDE 111 mEq/L (98-107); INR 1.2
[2022-04-08] MEDS: ALBUTEROL (0.083%) 2.5MG/3ML NEB HHN SCH ×3 (17:49→18:21)
[2022-04-08 18:20] LABS: PLATELET ESTIMATE NORMAL
[2022-04-08] MEDS ORDERED: FUROSEMIDE 40MG/4ML VIAL IV ONE (19:00)
[2022-04-08 20:46] LABS: BG BASE EXCESS 0.6 mmol/L (-2.0-2.0); BG CARBOXYHEMOGLOBIN 1.9 % (0.5-1.5); BG DEOXYHEMOGLOBIN 0.8 % (0.0-5.0); BG FRACTION INSPIRED OXYGEN 50; BG METHEMOGLOBIN 0.3 % (0.0-1.5); BG OXYGEN SATURATION 99.2 % (92.0-98.5); BG PCO2 44.8 mmHg (35.0-45.0); BG PH 7.381 (7.350-7.450); BG PO2 148.5 mmHg (75.0-100.0); BG SAMPLE SITE RIGHT RADIAL; BG TOTAL HEMOGLOBIN 9.9 g/dL (12.0-18.0); BG VENT MODE MASK - BIPAP
[2022-04-08] MEDS ORDERED: MAGNESIUM 2 G PREMIX 50 ML IV NR (21:45)
[2022-04-08] MEDS ORDERED: ONDANSETRON HCL 4MG/2ML INJ IV PRN ×2 (21:45→22:45)
[2022-04-08] MEDS ORDERED: FUROSEMIDE 40MG/4ML VIAL IV NR (21:45)
[2022-04-08] MEDS ORDERED: ACETAMINOPHEN 325MG TABLET PO PRN (21:45)
[2022-04-08] MEDS ORDERED: MAGNESIUM/ALUMINUM HYDROXIDE/SIMETHICONE 30ML UDC PO PRN ×2 (21:45→22:45)
[2022-04-08] MEDS ORDERED: IPRATROPIUM/ALBUTEROL 0.5-3(2.5)MG/3ML NEB HHN PRN (21:45)
[2022-04-08] MEDS ORDERED: DOCUSATE SODIUM 100MG CAPSULE PO PRN ×2 (21:45→22:45)
[2022-04-08] MEDS ORDERED: METHYLPREDNISOLONE SOD SUCC 125 MG/2 ML VIAL IV NR (21:45)
[2022-04-08] MEDS ORDERED: CLONIDINE 0.1MG TABLET PO PRN ×2 (21:45→22:45)
[2022-04-08 22:09] LABS: TOTAL IRON BINDING CAPACITY 357 ug/dL (250-450)
[2022-04-08] MEDS ORDERED: FUROSEMIDE 40MG/4ML VIAL IVP SCH (22:40)
[2022-04-08] MEDS ORDERED: GUAIFENESIN 200MG/10ML SUGAR FREE UDC PO PRN (22:45)
[2022-04-08] MEDS ORDERED: ZOLPIDEM TARTRATE 5MG TABLET PO PRN (22:45)
[2022-04-08] MEDS ORDERED: NITROGLYCERIN 0.4MG TABLET SL SL PRN (22:45)
[2022-04-08] MEDS ORDERED: METOLAZONE 10MG TABLET PO NR (22:45)
[2022-04-08 22:47] LABS: FOLIC ACID (FOLATE) SERUM 10.4 ng/mL (>5.38)
[2022-04-08] MEDS ORDERED: AZITHROMYCIN 500 MG in DEXT 5% WATER 250 ML IV SCH (23:00)
[2022-04-08] MEDS: TAMSULOSIN HCL 0.4MG SR CAPSULE PO SCH (23:15)
[2022-04-09] VITALS (7 sets, daily range): BP systolic 135–164; BP diastolic 79–111
[2022-04-09 00:05] LABS: PHOSPHORUS 3.3 mg/dL (2.5-4.9)
[2022-04-09 00:07] LABS: ETHANOL BLOOD < 10 mg/dL; HDL CHOLESTEROL 32 mg/dL (40-59); LDL CHOLESTEROL 36 mg/dL (5-100)
[2022-04-09] MEDS: FUROSEMIDE 40MG/4ML VIAL IVP SCH ×2 (07:15→16:21)
[2022-04-09] MEDS ORDERED: FUROSEMIDE 40MG/4ML VIAL IVP SCH (09:00)
[2022-04-09] MEDS ORDERED: ENOXAPARIN 40MG/0.4ML SYR SUBCUT SCH (09:00)
[2022-04-09] MEDS ORDERED: MEDICATION NOT ON FORMULARY EA (Valsartan (Diovan) 160 MG) PO SCH (09:00)
[2022-04-09] MEDS ORDERED: SPIRONOLACTONE 25MG TABLET PO SCH (09:00)
[2022-04-09] MEDS: CLONIDINE 0.1MG TABLET PO SCH (09:59)
[2022-04-09] MEDS: LOSARTAN POTASSIUM 100 MG TABLET PO SCH (09:59)
[2022-04-09] MEDS: FAMOTIDINE 20MG TABLET PO SCH (09:59)
[2022-04-09] MEDS: ASPIRIN 325MG EC TABLET PO SCH (09:59)
[2022-04-09] MEDS: AMLODIPINE 5MG TABLET PO SCH (09:59)
[2022-04-09 13:07] LABS: BASOPHILS % 0.1 % (0.0-2.0); HEMATOCRIT. 31.7 % (42.0-52.0); HEMOGLOBIN. 9.1 g/dL (14.0-18.0); LYMPHOCYTES % 15.3 % (20.0-50.0); MEAN CORPUSCULAR HEMOGLOBIN 20.5 pg (28.0-32.0); MEAN CORPUSCULAR VOLUME 71.1 fL (80.0-94.0); MEAN PLATELET VOLUME 8.5 fl (7.4-10.4); NEUTROPHILS % 82.6 % (40.0-76.0); PLATELET 228 x1000/uL (130-400); RED BLOOD CELL COUNT 4.46 mill/uL (4.7-6.1); RED CELL DISTRIBUTION WIDTH 21.5 % (11.6-14.6)
[2022-04-09 13:17] LABS: CHLORIDE 109 mEq/L (98-107)
[2022-04-09 13:34] LABS: HDL CHOLESTEROL 34 mg/dL (40-59); LDL CHOLESTEROL 41 mg/dL (5-100); T4 FREE 1.47 ng/dL (0.76-1.46)
[2022-04-09] MEDS ORDERED: INSULIN LISPRO 100 UNITS/ML SUBCUT NR (15:00)
[2022-04-09] MEDS ORDERED: DEXTROSE 50% WATER 50ML SYRINGE IV PRN (15:00)
[2022-04-09] MEDS ORDERED: RIVAROXABAN 15 MG TABLET PO SCH (17:00)
[2022-04-09] MEDS: BLOOD SUGAR DIAGNOSTIC STRIP TEST SCH ×2 (17:41→20:46)
[2022-04-09] MEDS: INSULIN LISPRO 100 UNITS/ML SUBCUT SCH ×2 (17:46→20:50)
[2022-04-09] MEDS ORDERED: FURO-151 MT (18:01)
[2022-04-09] MEDS ORDERED: CARV12.545 MT (18:01)
[2022-04-09] MEDS ORDERED: AMI2 MT (18:01)
[2022-04-09] MEDS ORDERED: DUTA0.5C2 PO (18:01)
[2022-04-09] MEDS ORDERED: METO5TAB7 MT (18:01)
[2022-04-09] MEDS ORDERED: TAMS-11 PO (18:01)
[2022-04-09] MEDS ORDERED: XALAO EACHEYE (18:01)
[2022-04-09] MEDS ORDERED: POTA-205 MT (18:01)
[2022-04-09] MEDS ORDERED: FEBU40TA MT (18:01)
[2022-04-09] MEDS ORDERED: GLIP5TAB12 MT ×2 (18:01)
[2022-04-09] MEDS ORDERED: LINA5TAB MT (18:01)
[2022-04-09] MEDS ORDERED: ATOR20TA MT (18:01)
[2022-04-09] MEDS ORDERED: [UNRECOGNIZED DRUG - CODE] PO (18:01)
[2022-04-09] MEDS: SPIRONOLACTONE 25MG TABLET PO SCH (20:44)
[2022-04-09] MEDS: TAMSULOSIN HCL 0.4MG SR CAPSULE PO SCH (20:45)
[2022-04-09] MEDS ORDERED: FAMOTIDINE 20MG TABLET PO SCH (21:00)
[2022-04-10] VITALS (14 sets, daily range): BP systolic 93–138; BP diastolic 28–88
[2022-04-10] MEDS: AZITHROMYCIN 500 MG in DEXT 5% WATER 250 ML IV SCH (05:21)
[2022-04-10] MEDS: BLOOD SUGAR DIAGNOSTIC STRIP TEST SCH ×4 (07:30→21:00)
[2022-04-10] MEDS: ASPIRIN 325MG EC TABLET PO SCH (09:40)
[2022-04-10] MEDS: FAMOTIDINE 20MG TABLET PO SCH (09:40)
[2022-04-10] MEDS: AMLODIPINE 5MG TABLET PO SCH (09:41)
[2022-04-10] MEDS: CLONIDINE 0.1MG TABLET PO SCH (09:42)
[2022-04-10] MEDS: FUROSEMIDE 40MG/4ML VIAL IVP SCH ×2 (09:42→18:23)
[2022-04-10] MEDS: INSULIN LISPRO 100 UNITS/ML SUBCUT SCH ×4 (09:53→21:00)
[2022-04-10] MEDS: LOSARTAN POTASSIUM 100 MG TABLET PO SCH (09:56)
[2022-04-10 10:48] LABS: HEMATOCRIT 31.2 % (42.0-52.0); HEMOGLOBIN 9.1 g/dL (14.0-18.0); MEAN CORPUSCULAR HEMOGLOBIN 20.8 pg (28.0-32.0); MEAN CORPUSCULAR VOLUME 71.4 fL (80.0-94.0); PLATELET 229 x1000/uL (130-400); RED BLOOD CELL COUNT 4.37 mill/uL (4.7-6.1); RED CELL DISTRIBUTION WIDTH 21.4 % (11.6-14.6)
[2022-04-10] MEDS: TAMSULOSIN HCL 0.4MG SR CAPSULE PO SCH (22:08)
[2022-04-10] MEDS: SPIRONOLACTONE 25MG TABLET PO SCH (22:22)
[2022-04-11] VITALS (8 sets, daily range): BP systolic 105–135; BP diastolic 65–89
[2022-04-11] MEDS: FUROSEMIDE 40MG/4ML VIAL IVP SCH (05:56)
[2022-04-11] MEDS: AZITHROMYCIN 500 MG in DEXT 5% WATER 250 ML IV SCH (05:57)
[2022-04-11 06:59] LABS: HEMATOCRIT 29.7 % (42.0-52.0); MEAN CORPUSCULAR HEMOGLOBIN 20.8 pg (28.0-32.0); MEAN CORPUSCULAR VOLUME 68.7 fL (80.0-94.0); PLATELET 230 x1000/uL (130-400); RED BLOOD CELL COUNT 4.32 mill/uL (4.7-6.1)
[2022-04-11] MEDS: INSULIN LISPRO 100 UNITS/ML SUBCUT SCH ×2 (07:54→11:36)
[2022-04-11] MEDS: BLOOD SUGAR DIAGNOSTIC STRIP TEST SCH ×2 (07:54→11:36)
[2022-04-11] MEDS: ASPIRIN 325MG EC TABLET PO SCH (08:18)
[2022-04-11] MEDS: AMLODIPINE 5MG TABLET PO SCH (08:18)
[2022-04-11] MEDS: LOSARTAN POTASSIUM 100 MG TABLET PO SCH (08:18)
[2022-04-11] MEDS: FAMOTIDINE 20MG TABLET PO SCH (08:19)
[2022-04-11] MEDS: CLONIDINE 0.1MG TABLET PO SCH (08:19)
[2022-04-11] MEDS ORDERED: POTASSIUM CHLORIDE 20MEQ TABLET SR PO NR (09:00)
[2022-04-11] MEDS ORDERED: LOSA50TA41 MT (12:19)
[2022-04-11] MEDS ORDERED: FURO-151 MT (12:19)
== END 2022-04-11 17:19 | disposition home or self-care (01) | DRG 291 ==
LOC: ER 14:20 → MICUSO 20:51 → EDBEDREQTM 20:55 → EDBEDREQ 20:55 → 5EST 04-09 09:46
PROVIDERS: ADMIT Student in an Organized Health Care Education/Training Program; ATTEND Internal Medicine
PROC: 5A09357 Assistance with Respiratory Ventilation, Less than 24 Consecutive Hours, Continuous Positive Airway Pressure (ICD-10-PCS; principal; 2022-04-08)
DX: I13.0 Hypertensive heart and chronic kidney disease with heart failure and stage 1 through stage 4 chronic kidney disease, or unspecified chronic kidney disease (principal); I50.23 Acute on chronic systolic (congestive) heart failure; J96.20 Acute and chronic respiratory failure, unspecified whether with hypoxia or hypercapnia; E46 Unspecified protein-calorie malnutrition; I48.91 Unspecified atrial fibrillation; D50.9 Iron deficiency anemia, unspecified; Z20.822 Contact with and (suspected) exposure to COVID-19; J44.9 Chronic obstructive pulmonary disease, unspecified; N18.9 Chronic kidney disease, unspecified; N40.0 Benign prostatic hyperplasia without lower urinary tract symptoms; E11.22 Type 2 diabetes mellitus with diabetic chronic kidney disease; E78.00 Pure hypercholesterolemia, unspecified; Z88.0 Allergy status to penicillin; Z79.899 Other long term (current) drug therapy; Z68.39 Body mass index [BMI] 39.0-39.9, adult; Z79.01 Long term (current) use of anticoagulants; Z87.891 Personal history of nicotine dependence
CPT/HCPCS: 36415; 36600; 71045; 76770; 80048; 80053; 80061; 80320; 82375; 82607; 82728; 82746; 82805; 82962; 83036; 83540; 83550; 83735; 83880; 84100; 84439; 84443; 84481; 84484; 85025; 85027; 87426; 87804; 93005; 93306; 93970; 94640; 94660; 99291; J0456; J1815; J1940; J2930; J3475; J7060; G0480

== ENCOUNTER 2022-06-04 08:40 | Inpatient (IN) | payer BC, MEDICAID ==
[~2022-06-04] VITALS: Ht 185.4 cm; Wt 132.0 kg
[~2022-06-04 08:40] MED LIST changes: -ALLO100T MT; +AMI2 MT; -AMLO10TA80 PO; +ATOR20TA MT; +CARV12.545 MT; -CARV6.2548 PO; -CETI10TA6 PO; -CLON0.1T PO; +DUTA0.5C2 PO; +FEBU40TA MT; +FURO-151 MT; -FURO-151 PO; -GLIP5TAB12 MT; +LINA5TAB MT; -LINA5TAB PO; +LOSA50TA41 MT; -METO-293 PO; +METO5TAB7 MT; +POTA-205 MT; -RIVA10TA PO; -SPIR25TA6 PO; -TOPUD MT; -TOPUD PO; -VALS160T2 PO; +XALAO EACHEYE; +[UNRECOGNIZED DRUG - CODE] PO
[2022-06-04 10:50] LABS: BG BASE EXCESS -5.2 mmol/L (-2.0-2.0); BG CARBOXYHEMOGLOBIN 1.3 % (0.5-1.5); BG FRACTION INSPIRED OXYGEN 36; BG HCO3 ACT 18.4 mmol/L (22.0-26.0); BG METHEMOGLOBIN 0.6 % (0.0-1.5); BG OXYHEMOGLOBIN 96.1 % (94.0-97.0); BG PCO2 29.3 mmHg (35.0-45.0); BG PH 7.416 (7.350-7.450); BG PO2 100.6 mmHg (75.0-100.0); BG SAMPLE SITE RIGHT BRACHIAL; BG TOTAL HEMOGLOBIN 10.4 g/dL (12.0-18.0)
[2022-06-04] MEDS ORDERED: ACETAMINOPHEN WITH CODEINE 300/30MG TABLET PO ONE (13:15)
[2022-06-04] MEDS ORDERED: ALBUTEROL (0.083%) 2.5MG/3ML NEB HHN STA (13:27)
[2022-06-04] MEDS ORDERED: METHYLPREDNISOLONE SOD SUCC 125 MG/2 ML VIAL IV STA (13:27)
[2022-06-04] MEDS ORDERED: IPRATROPIUM BROMIDE (0.02%) 0.5MG/2.5ML NEB HHN STA (13:27)
[2022-06-04] MEDS ORDERED: MAGNESIUM 2 G PREMIX 50 ML IV STA (13:27)
[2022-06-04 14:16] LABS: BASOPHILS % 0.6 % (0.0-2.0); EOSINOPHILS % 0.9 % (0.0-5.0); HEMATOCRIT. 33.7 % (42.0-52.0); HEMOGLOBIN. 9.8 g/dL (14.0-18.0); LYMPHOCYTES % 17.8 % (20.0-50.0); MEAN CORPUSCULAR HEMOGLOBIN 20.1 pg (28.0-32.0); MEAN CORPUSCULAR VOLUME 69.3 fL (80.0-94.0); MEAN PLATELET VOLUME 8.7 fl (7.4-10.4); MONOCYTES % 10.4 % (2.0-8.0); NEUTROPHILS % 70.3 % (40.0-76.0); PLATELET 299 x1000/uL (130-400); RED BLOOD CELL COUNT 4.86 mill/uL (4.7-6.1); RED CELL DISTRIBUTION WIDTH 22.5 % (11.6-14.6)
[2022-06-04 14:25] LABS: CHLORIDE 109 mEq/L (98-107)
[2022-06-04 14:48] LABS: PLATELET ESTIMATE NORMAL
[2022-06-04] MEDS ORDERED: KETAMINE HCL 50 MG/ML 10ML IV ONE (15:15)
[2022-06-04] MEDS ORDERED: LORAZEPAM 2MG/ML CPJ IV ONE (15:30)
[2022-06-04 15:34] LABS: BG BASE EXCESS -6.8 mmol/L (-2.0-2.0); BG CARBOXYHEMOGLOBIN 1.5 % (0.5-1.5); BG DEOXYHEMOGLOBIN 5.3 % (0.0-5.0); BG HCO3 ACT 17.9 mmol/L (22.0-26.0); BG METHEMOGLOBIN 0.5 % (0.0-1.5); BG OXYGEN SATURATION 94.6 % (92.0-98.5); BG OXYHEMOGLOBIN 92.7 % (94.0-97.0); BG PCO2 33.1 mmHg (35.0-45.0); BG PH 7.351 (7.350-7.450); BG PO2 74.9 mmHg (75.0-100.0); BG SAMPLE SITE RIGHT BRACHIAL; BG TOTAL HEMOGLOBIN 10.7 g/dL (12.0-18.0); BG VENT MODE NASAL CANNULA
[2022-06-04] MEDS ORDERED: MAGNESIUM/ALUMINUM HYDROXIDE/SIMETHICONE 30ML UDC PO PRN (17:30)
[2022-06-04] MEDS ORDERED: CLONIDINE 0.1MG TABLET PO PRN (17:30)
[2022-06-04] MEDS ORDERED: DOCUSATE SODIUM 100MG CAPSULE PO PRN (17:30)
[2022-06-04] MEDS ORDERED: IPRATROPIUM/ALBUTEROL 0.5-3(2.5)MG/3ML NEB HHN PRN (17:30)
[2022-06-04] MEDS ORDERED: FUROSEMIDE 100MG/10ML VIAL IVP NR (18:00)
[2022-06-04] MEDS ORDERED: ENOXAPARIN 40MG/0.4ML SYR SUBCUT SCH (18:00)
[2022-06-04] MEDS: POTASSIUM CHLORIDE 20MEQ TABLET SR PO SCH (18:48)
[2022-06-04] MEDS: FUROSEMIDE 40MG TABLET PO SCH (18:48)
[2022-06-04] MEDS: LOSARTAN POTASSIUM 50 MG TABLET PO SCH (18:48)
[2022-06-04] MEDS: DUTASTERIDE 0.5MG CAPSULE PO SCH (19:59)
[2022-06-04] MEDS: METOLAZONE 2.5MG TABLET PO SCH (20:00)
[2022-06-04] MEDS: AMIODARONE HCL 200 MG TABLET PO SCH (20:00)
[2022-06-04] MEDS: LINAGLIPTIN 5MG TABLET PO SCH (20:00)
[2022-06-04] MEDS ORDERED: ZOLPIDEM TARTRATE 5MG TABLET PO PRN (21:00)
[2022-06-04] MEDS: SODIUM CHLORIDE 0.9% INJ 3ML FLUSH IVF SCH (22:14)
[2022-06-04] MEDS: CARVEDILOL 12.5MG TABLET PO SCH (22:14)
[2022-06-04] MEDS: ATORVASTATIN CALCIUM 20MG TABLET PO SCH (22:14)
[2022-06-04] MEDS: LATANOPROST 0.005% OPHTH DROPS 2.5ML EACHEYE SCH (23:51)
[2022-06-04] MEDS: TAMSULOSIN HCL 0.4MG SR CAPSULE PO SCH (23:52)
[2022-06-05] VITALS (8 sets, daily range): BP systolic 118–145; BP diastolic 74–102
[2022-06-05] MEDS ORDERED: DEXTROSE 50% WATER 50ML SYRINGE IV PRN (06:30)
[2022-06-05] MEDS: SODIUM CHLORIDE 0.9% INJ 3ML FLUSH IVF SCH ×3 (06:37→22:14)
[2022-06-05] MEDS: BLOOD SUGAR DIAGNOSTIC STRIP TEST SCH ×4 (06:37→20:47)
[2022-06-05] MEDS: INSULIN LISPRO 100 UNITS/ML SUBCUT SCH ×5 (07:36→20:47)
[2022-06-05 09:05] LABS: HEMATOCRIT. 32.8 % (42.0-52.0); HEMOGLOBIN. 9.4 g/dL (14.0-18.0); MEAN CORPUSCULAR HEMOGLOBIN 20.2 pg (28.0-32.0); MEAN CORPUSCULAR VOLUME 70.6 fL (80.0-94.0); MEAN PLATELET VOLUME 8.7 fl (7.4-10.4); PLATELET 263 x1000/uL (130-400); RED BLOOD CELL COUNT 4.64 mill/uL (4.7-6.1); RED CELL DISTRIBUTION WIDTH 22.1 % (11.6-14.6)
[2022-06-05] MEDS: DUTASTERIDE 0.5MG CAPSULE PO SCH (09:41)
[2022-06-05] MEDS: AMIODARONE HCL 200 MG TABLET PO SCH (09:41)
[2022-06-05] MEDS: POTASSIUM CHLORIDE 20MEQ TABLET SR PO SCH (09:41)
[2022-06-05] MEDS: LINAGLIPTIN 5MG TABLET PO SCH (09:42)
[2022-06-05] MEDS: LOSARTAN POTASSIUM 50 MG TABLET PO SCH (09:42)
[2022-06-05] MEDS: METOLAZONE 2.5MG TABLET PO SCH ×2 (09:42→17:43)
[2022-06-05] MEDS: FUROSEMIDE 40MG TABLET PO SCH (09:42)
[2022-06-05] MEDS: CARVEDILOL 12.5MG TABLET PO SCH ×2 (09:42→20:47)
[2022-06-05 09:56] LABS: VITAMIN B12 SERUM 805 pg/mL (211-911)
[2022-06-05 10:08] LABS: PLATELET ESTIMATE NORMAL
[2022-06-05] MEDS: ASPIRIN 81MG TABLET PO SCH (14:02)
[2022-06-05] MEDS: ENOXAPARIN 150MG/ML SYR SUBCUT SCH ×2 (14:02→22:13)
[2022-06-05] MEDS: FUROSEMIDE 100MG/10ML VIAL IVP SCH (14:06)
[2022-06-05] MEDS: TAMSULOSIN HCL 0.4MG SR CAPSULE PO SCH (20:47)
[2022-06-05] MEDS: ATORVASTATIN CALCIUM 20MG TABLET PO SCH (20:47)
[2022-06-05] MEDS: LATANOPROST 0.005% OPHTH DROPS 2.5ML EACHEYE SCH (22:13)
[2022-06-06] VITALS: BP 122/86
[2022-06-06 04:00] VITALS: BP 102/71
[2022-06-06] MEDS: SODIUM CHLORIDE 0.9% INJ 3ML FLUSH IVF SCH ×3 (05:06→14:00)
[2022-06-06] MEDS: BLOOD SUGAR DIAGNOSTIC STRIP TEST SCH ×4 (07:22→21:00)
[2022-06-06 07:23] LABS: HEMATOCRIT. 31.5 % (42.0-52.0); LYMPHOCYTES % 7.5 % (20.0-50.0); MEAN CORPUSCULAR HEMOGLOBIN 19.8 pg (28.0-32.0); MEAN CORPUSCULAR VOLUME 69.4 fL (80.0-94.0); MEAN PLATELET VOLUME 8.7 fl (7.4-10.4); MONOCYTES % 8.5 % (2.0-8.0); PLATELET 252 x1000/uL (130-400); RED BLOOD CELL COUNT 4.53 mill/uL (4.7-6.1); RED CELL DISTRIBUTION WIDTH 22.2 % (11.6-14.6)
[2022-06-06] MEDS: INSULIN LISPRO 100 UNITS/ML SUBCUT SCH ×4 (07:24→21:00)
[2022-06-06 08:00] VITALS: BP 107/65
[2022-06-06] MEDS: AMIODARONE HCL 200 MG TABLET PO SCH (08:40)
[2022-06-06] MEDS: LINAGLIPTIN 5MG TABLET PO SCH (08:40)
[2022-06-06] MEDS: LOSARTAN POTASSIUM 50 MG TABLET PO SCH (08:40)
[2022-06-06] MEDS: DUTASTERIDE 0.5MG CAPSULE PO SCH (08:40)
[2022-06-06] MEDS: POTASSIUM CHLORIDE 20MEQ TABLET SR PO SCH (08:41)
[2022-06-06] MEDS: METOLAZONE 2.5MG TABLET PO SCH ×2 (08:41→17:18)
[2022-06-06] MEDS: ASPIRIN 81MG TABLET PO SCH (08:41)
[2022-06-06] MEDS: FUROSEMIDE 100MG/10ML VIAL IVP SCH (08:41)
[2022-06-06] MEDS: CARVEDILOL 12.5MG TABLET PO SCH ×2 (08:41→21:00)
[2022-06-06] MEDS: ENOXAPARIN 150MG/ML SYR SUBCUT SCH ×2 (11:22→22:35)
[2022-06-06] MEDS ORDERED: LEVOFLOXACIN 500MG PREMIX 100 ML IV NR (11:30)
[2022-06-06 12:00] VITALS: BP 130/85
[2022-06-06 15:51] VITALS: BP 120/87
[2022-06-06 20:00] VITALS: BP 89/65
[2022-06-06] MEDS: LATANOPROST 0.005% OPHTH DROPS 2.5ML EACHEYE SCH (22:25)
[2022-06-06] MEDS: TAMSULOSIN HCL 0.4MG SR CAPSULE PO SCH (22:32)
[2022-06-06] MEDS: ATORVASTATIN CALCIUM 20MG TABLET PO SCH (22:33)
[2022-06-07] VITALS: BP 119/86
[2022-06-07 04:00] VITALS: BP 89/57
[2022-06-07] MEDS: SODIUM CHLORIDE 0.9% INJ 3ML FLUSH IVF SCH ×2 (06:00→21:41)
[2022-06-07] MEDS: BLOOD SUGAR DIAGNOSTIC STRIP TEST SCH ×4 (06:38→21:57)
[2022-06-07 06:39] LABS: BASOPHILS % 0.3 % (0.0-2.0); EOSINOPHILS % 1.6 % (0.0-5.0); HEMOGLOBIN. 9.1 g/dL (14.0-18.0); LYMPHOCYTES % 15.4 % (20.0-50.0); MEAN CORPUSCULAR HEMOGLOBIN 19.9 pg (28.0-32.0); MEAN CORPUSCULAR VOLUME 67.6 fL (80.0-94.0); MEAN PLATELET VOLUME 8.7 fl (7.4-10.4); MONOCYTES % 11.6 % (2.0-8.0); NEUTROPHILS % 71.1 % (40.0-76.0); PLATELET 248 x1000/uL (130-400); RED BLOOD CELL COUNT 4.58 mill/uL (4.7-6.1); RED CELL DISTRIBUTION WIDTH 21.8 % (11.6-14.6)
[2022-06-07 08:00] VITALS: BP 130/77
[2022-06-07] MEDS: INSULIN LISPRO 100 UNITS/ML SUBCUT SCH ×4 (08:00→22:00)
[2022-06-07] MEDS ORDERED: LEVO250T74 MT (09:32)
[2022-06-07] MEDS: ASPIRIN 81MG TABLET PO SCH (10:02)
[2022-06-07] MEDS: DUTASTERIDE 0.5MG CAPSULE PO SCH (10:02)
[2022-06-07] MEDS: METOLAZONE 2.5MG TABLET PO SCH ×2 (10:03→19:11)
[2022-06-07] MEDS: AMIODARONE HCL 200 MG TABLET PO SCH (10:03)
[2022-06-07] MEDS: FUROSEMIDE 100MG/10ML VIAL IVP SCH (10:03)
[2022-06-07] MEDS: CARVEDILOL 12.5MG TABLET PO SCH ×2 (10:04→21:00)
[2022-06-07] MEDS: POTASSIUM CHLORIDE 20MEQ TABLET SR PO SCH (10:04)
[2022-06-07] MEDS: LINAGLIPTIN 5MG TABLET PO SCH (10:05)
[2022-06-07] MEDS: ENOXAPARIN 150MG/ML SYR SUBCUT SCH ×3 (10:05→23:37)
[2022-06-07 12:00] VITALS: BP 112/70
[2022-06-07] MEDS: LEVOFLOXACIN 250MG PREMIX 50 ML IV SCH (12:50)
[2022-06-07 16:00] VITALS: BP 114/72
[2022-06-07 20:30] VITALS: BP 103/71
[2022-06-07] MEDS: TAMSULOSIN HCL 0.4MG SR CAPSULE PO SCH (21:39)
[2022-06-07] MEDS: ATORVASTATIN CALCIUM 20MG TABLET PO SCH (21:40)
[2022-06-07] MEDS: LATANOPROST 0.005% OPHTH DROPS 2.5ML EACHEYE SCH (21:41)
[2022-06-08] VITALS: BP 127/68
[2022-06-08 04:00] VITALS: BP 124/62
[2022-06-08] MEDS: SODIUM CHLORIDE 0.9% INJ 3ML FLUSH IVF SCH ×3 (06:00→21:13)
[2022-06-08] MEDS: BLOOD SUGAR DIAGNOSTIC STRIP TEST SCH ×4 (06:50→21:12)
[2022-06-08] MEDS: INSULIN LISPRO 100 UNITS/ML SUBCUT SCH ×4 (07:20→21:13)
[2022-06-08 08:00] VITALS: BP 106/67
[2022-06-08] MEDS: CARVEDILOL 12.5MG TABLET PO SCH ×2 (09:00→21:09)
[2022-06-08] MEDS: AMIODARONE HCL 200 MG TABLET PO SCH (09:20)
[2022-06-08] MEDS: DUTASTERIDE 0.5MG CAPSULE PO SCH (09:20)
[2022-06-08] MEDS: ASPIRIN 81MG TABLET PO SCH (09:20)
[2022-06-08] MEDS: FUROSEMIDE 100MG/10ML VIAL IVP SCH (09:20)
[2022-06-08] MEDS: POTASSIUM CHLORIDE 20MEQ TABLET SR PO SCH (09:20)
[2022-06-08] MEDS: METOLAZONE 2.5MG TABLET PO SCH ×2 (09:27→17:55)
[2022-06-08] MEDS: LINAGLIPTIN 5MG TABLET PO SCH (09:27)
[2022-06-08] MEDS: LEVOFLOXACIN 250MG PREMIX 50 ML IV SCH (11:17)
[2022-06-08] MEDS: ENOXAPARIN 150MG/ML SYR SUBCUT SCH ×2 (11:18→23:00)
[2022-06-08 12:00] VITALS: BP 103/76
[2022-06-08 16:00] VITALS: BP 129/60
[2022-06-08 20:00] VITALS: BP 157/116
[2022-06-08] MEDS: ATORVASTATIN CALCIUM 20MG TABLET PO SCH (21:09)
[2022-06-08] MEDS: TAMSULOSIN HCL 0.4MG SR CAPSULE PO SCH (21:09)
[2022-06-08] MEDS: LATANOPROST 0.005% OPHTH DROPS 2.5ML EACHEYE SCH (21:12)
[2022-06-08] MEDS: ACETAMINOPHEN 325MG TABLET PO PRN ×2 (21:19→23:33)
[2022-06-09] VITALS: BP 105/67
[2022-06-09 04:00] VITALS: BP 116/80
[2022-06-09] MEDS: SODIUM CHLORIDE 0.9% INJ 3ML FLUSH IVF SCH ×3 (06:09→22:00)
[2022-06-09] MEDS: BLOOD SUGAR DIAGNOSTIC STRIP TEST SCH ×4 (06:14→21:48)
[2022-06-09 06:28] LABS: CHLORIDE 95 mEq/L (98-107)
[2022-06-09 07:12] LABS: BASOPHILS % 0.1 % (0.0-2.0); EOSINOPHILS % 3.5 % (0.0-5.0); HEMATOCRIT. 30.4 % (42.0-52.0); HEMOGLOBIN. 9.2 g/dL (14.0-18.0); LYMPHOCYTES % 24.2 % (20.0-50.0); MEAN CORPUSCULAR HEMOGLOBIN 19.8 pg (28.0-32.0); MEAN CORPUSCULAR VOLUME 65.7 fL (80.0-94.0); MEAN PLATELET VOLUME 8.8 fl (7.4-10.4); MONOCYTES % 13.1 % (2.0-8.0); NEUTROPHILS % 59.1 % (40.0-76.0); PLATELET 244 x1000/uL (130-400); RED BLOOD CELL COUNT 4.63 mill/uL (4.7-6.1)
[2022-06-09 08:00] VITALS: BP 106/66
[2022-06-09] MEDS: INSULIN LISPRO 100 UNITS/ML SUBCUT SCH ×4 (08:00→21:00)
[2022-06-09] MEDS: POTASSIUM CHLORIDE 20MEQ TABLET SR PO SCH (08:01)
[2022-06-09] MEDS: AMIODARONE HCL 200 MG TABLET PO SCH (08:01)
[2022-06-09] MEDS: LINAGLIPTIN 5MG TABLET PO SCH (08:01)
[2022-06-09] MEDS: METOLAZONE 2.5MG TABLET PO SCH ×2 (08:01→18:02)
[2022-06-09] MEDS: FUROSEMIDE 100MG/10ML VIAL IVP SCH (08:01)
[2022-06-09] MEDS: ASPIRIN 81MG TABLET PO SCH (08:01)
[2022-06-09] MEDS: DUTASTERIDE 0.5MG CAPSULE PO SCH (08:01)
[2022-06-09] MEDS: CARVEDILOL 12.5MG TABLET PO SCH ×2 (09:00→21:00)
[2022-06-09] MEDS: LEVOFLOXACIN 250MG TABLET PO SCH (10:50)
[2022-06-09] MEDS: ENOXAPARIN 150MG/ML SYR SUBCUT SCH ×2 (10:50→22:00)
[2022-06-09 12:00] VITALS: BP 85/60
[2022-06-09 16:00] VITALS: BP 110/56
[2022-06-09 20:00] VITALS: BP 105/72
[2022-06-09] MEDS: ATORVASTATIN CALCIUM 20MG TABLET PO SCH (21:56)
[2022-06-09] MEDS: TAMSULOSIN HCL 0.4MG SR CAPSULE PO SCH (21:57)
[2022-06-09] MEDS: LATANOPROST 0.005% OPHTH DROPS 2.5ML EACHEYE SCH (21:58)
[2022-06-10] VITALS (7 sets, daily range): BP systolic 90–104; BP diastolic 50–76
[2022-06-10] MEDS: BLOOD SUGAR DIAGNOSTIC STRIP TEST SCH ×4 (06:27→20:37)
[2022-06-10] MEDS: SODIUM CHLORIDE 0.9% INJ 3ML FLUSH IVF SCH ×3 (06:27→20:37)
[2022-06-10] MEDS: INSULIN LISPRO 100 UNITS/ML SUBCUT SCH ×4 (07:20→20:44)
[2022-06-10] MEDS: CARVEDILOL 12.5MG TABLET PO SCH ×2 (09:00→20:34)
[2022-06-10] MEDS: ASPIRIN 81MG TABLET PO SCH (09:22)
[2022-06-10] MEDS: POTASSIUM CHLORIDE 20MEQ TABLET SR PO SCH (09:22)
[2022-06-10] MEDS: AMIODARONE HCL 200 MG TABLET PO SCH (09:22)
[2022-06-10] MEDS: METOLAZONE 2.5MG TABLET PO SCH ×2 (09:22→17:38)
[2022-06-10] MEDS: LINAGLIPTIN 5MG TABLET PO SCH (09:22)
[2022-06-10] MEDS: DUTASTERIDE 0.5MG CAPSULE PO SCH (09:23)
[2022-06-10] MEDS: ENOXAPARIN 150MG/ML SYR SUBCUT SCH (11:00)
[2022-06-10] MEDS: LEVOFLOXACIN 250MG TABLET PO SCH (13:23)
[2022-06-10] MEDS: FUROSEMIDE 100MG/10ML VIAL IVP SCH (17:38)
[2022-06-10] MEDS: TAMSULOSIN HCL 0.4MG SR CAPSULE PO SCH (20:33)
[2022-06-10] MEDS: LATANOPROST 0.005% OPHTH DROPS 2.5ML EACHEYE SCH (20:34)
[2022-06-10] MEDS: ATORVASTATIN CALCIUM 20MG TABLET PO SCH (20:34)
[2022-06-11] VITALS: BP 93/58
[2022-06-11 05:09] VITALS: BP 102/74
[2022-06-11 05:32] LABS: HEMATOCRIT. 31.4 % (42.0-52.0); HEMOGLOBIN. 9.6 g/dL (14.0-18.0); MEAN CORPUSCULAR HEMOGLOBIN 20.1 pg (28.0-32.0); MEAN CORPUSCULAR VOLUME 65.9 fL (80.0-94.0); MEAN PLATELET VOLUME 8.8 fl (7.4-10.4); PLATELET 235 x1000/uL (130-400); RED BLOOD CELL COUNT 4.76 mill/uL (4.7-6.1); RED CELL DISTRIBUTION WIDTH 21.9 % (11.6-14.6)
[2022-06-11] MEDS: BLOOD SUGAR DIAGNOSTIC STRIP TEST SCH ×4 (05:56→21:45)
[2022-06-11] MEDS: SODIUM CHLORIDE 0.9% INJ 3ML FLUSH IVF SCH ×2 (05:56→14:03)
[2022-06-11] MEDS: INSULIN LISPRO 100 UNITS/ML SUBCUT SCH ×4 (07:20→21:45)
[2022-06-11] MEDS: APIXABAN 5 MG TABLET PO SCH ×2 (08:45→17:15)
[2022-06-11] MEDS: DUTASTERIDE 0.5MG CAPSULE PO SCH (08:45)
[2022-06-11] MEDS: LINAGLIPTIN 5MG TABLET PO SCH (08:45)
[2022-06-11] MEDS: POTASSIUM CHLORIDE 20MEQ TABLET SR PO SCH (08:45)
[2022-06-11] MEDS: ASPIRIN 81MG TABLET PO SCH (08:45)
[2022-06-11] MEDS: METOLAZONE 2.5MG TABLET PO SCH ×2 (08:45→17:15)
[2022-06-11] MEDS: AMIODARONE HCL 200 MG TABLET PO SCH (08:45)
[2022-06-11] MEDS: CARVEDILOL 12.5MG TABLET PO SCH ×2 (08:45→21:43)
[2022-06-11] MEDS: FUROSEMIDE 100MG/10ML VIAL IVP SCH (08:45)
[2022-06-11 12:00] VITALS: BP 87/66
[2022-06-11] MEDS: LEVOFLOXACIN 250MG TABLET PO SCH (12:01)
[2022-06-11 20:00] VITALS: BP 118/76
[2022-06-11] MEDS: LATANOPROST 0.005% OPHTH DROPS 2.5ML EACHEYE SCH (21:42)
[2022-06-11] MEDS: TAMSULOSIN HCL 0.4MG SR CAPSULE PO SCH (21:43)
[2022-06-11] MEDS: ATORVASTATIN CALCIUM 20MG TABLET PO SCH (21:44)
[2022-06-11 22:16] LABS: PLATELET ESTIMATE NORMAL
[2022-06-12] VITALS: BP 136/93
[2022-06-12] MEDS: SODIUM CHLORIDE 0.9% INJ 3ML FLUSH IVF SCH ×4 (01:58→22:11)
[2022-06-12] MEDS: BLOOD SUGAR DIAGNOSTIC STRIP TEST SCH ×4 (06:01→21:25)
[2022-06-12 06:28] LABS: HEMATOCRIT. 31.5 % (42.0-52.0); HEMOGLOBIN. 9.5 g/dL (14.0-18.0); MEAN CORPUSCULAR HEMOGLOBIN 20.2 pg (28.0-32.0); MEAN CORPUSCULAR VOLUME 67.3 fL (80.0-94.0); MEAN PLATELET VOLUME 8.7 fl (7.4-10.4); PLATELET 212 x1000/uL (130-400); RED BLOOD CELL COUNT 4.69 mill/uL (4.7-6.1); RED CELL DISTRIBUTION WIDTH 21.8 % (11.6-14.6)
[2022-06-12] MEDS: INSULIN LISPRO 100 UNITS/ML SUBCUT SCH ×4 (07:15→22:10)
[2022-06-12 08:00] VITALS: BP 97/65
[2022-06-12] MEDS: POTASSIUM CHLORIDE 20MEQ TABLET SR PO SCH (09:00)
[2022-06-12] MEDS: AMIODARONE HCL 200 MG TABLET PO SCH (09:00)
[2022-06-12] MEDS: FUROSEMIDE 40MG/4ML VIAL IVP SCH (09:00)
[2022-06-12] MEDS: CARVEDILOL 12.5MG TABLET PO SCH ×2 (09:00→21:24)
[2022-06-12] MEDS: APIXABAN 5 MG TABLET PO SCH ×2 (09:39→17:16)
[2022-06-12] MEDS: DUTASTERIDE 0.5MG CAPSULE PO SCH (09:39)
[2022-06-12] MEDS: LINAGLIPTIN 5MG TABLET PO SCH (09:39)
[2022-06-12] MEDS: METOLAZONE 2.5MG TABLET PO SCH ×2 (09:39→17:16)
[2022-06-12] MEDS: ASPIRIN 81MG TABLET PO SCH (09:39)
[2022-06-12 12:00] VITALS: BP 105/71
[2022-06-12 12:11] LABS: PLATELET ESTIMATE NORMAL
[2022-06-12 16:00] VITALS: BP 103/69
[2022-06-12 20:00] VITALS: BP 96/45
[2022-06-12] MEDS: LATANOPROST 0.005% OPHTH DROPS 2.5ML EACHEYE SCH (21:21)
[2022-06-12] MEDS: ATORVASTATIN CALCIUM 20MG TABLET PO SCH (21:21)
[2022-06-12] MEDS: TAMSULOSIN HCL 0.4MG SR CAPSULE PO SCH (21:24)
[2022-06-13 04:00] VITALS: BP 108/75
[2022-06-13] MEDS: SODIUM CHLORIDE 0.9% INJ 3ML FLUSH IVF SCH ×2 (05:56→14:18)
[2022-06-13] MEDS: BLOOD SUGAR DIAGNOSTIC STRIP TEST SCH ×2 (05:56→11:45)
[2022-06-13] MEDS: INSULIN LISPRO 100 UNITS/ML SUBCUT SCH ×2 (07:37→12:02)
[2022-06-13 08:00] VITALS: BP 104/71
[2022-06-13] MEDS: CARVEDILOL 12.5MG TABLET PO SCH (09:00)
[2022-06-13] MEDS: AMIODARONE HCL 200 MG TABLET PO SCH (09:00)
[2022-06-13] MEDS: FUROSEMIDE 40MG/4ML VIAL IVP SCH (09:30)
[2022-06-13] MEDS: ASPIRIN 81MG TABLET PO SCH (09:31)
[2022-06-13] MEDS: POTASSIUM CHLORIDE 20MEQ TABLET SR PO SCH (09:31)
[2022-06-13] MEDS: METOLAZONE 2.5MG TABLET PO SCH (09:31)
[2022-06-13] MEDS: APIXABAN 5 MG TABLET PO SCH (09:31)
[2022-06-13] MEDS: DUTASTERIDE 0.5MG CAPSULE PO SCH (09:31)
[2022-06-13] MEDS: LINAGLIPTIN 5MG TABLET PO SCH (09:35)
[2022-06-13 12:00] VITALS: BP 110/70
[2022-06-13 14:47] VITALS: BP 110/70
== END 2022-06-13 16:01 | disposition home health service (06) | DRG 291 ==
LOC: ER 08:40 → MICUSO 13:36 → EDBEDREQ 13:40 → EDBEDREQTM 13:40 → EDBEDREQSVC 13:40 → 5EST 06-05 05:23 → 3WST 06-07 20:52 → 5WST 06-11 11:12 → 3WST 06-11 11:32 → 5WST 06-11 11:40
PROVIDERS: ADMIT Internal Medicine Pulmonary Disease; ATTEND Internal Medicine Pulmonary Disease
PROC: 5A09357 Assistance with Respiratory Ventilation, Less than 24 Consecutive Hours, Continuous Positive Airway Pressure (ICD-10-PCS; principal; 2022-06-04)
DX: I13.0 Hypertensive heart and chronic kidney disease with heart failure and stage 1 through stage 4 chronic kidney disease, or unspecified chronic kidney disease (principal); I50.23 Acute on chronic systolic (congestive) heart failure; J18.9 Pneumonia, unspecified organism; J96.21 Acute and chronic respiratory failure with hypoxia; N17.9 Acute kidney failure, unspecified; E44.1 Mild protein-calorie malnutrition; J44.0 Chronic obstructive pulmonary disease with (acute) lower respiratory infection; J44.1 Chronic obstructive pulmonary disease with (acute) exacerbation; Z20.822 Contact with and (suspected) exposure to COVID-19; I25.10 Atherosclerotic heart disease of native coronary artery without angina pectoris; I25.5 Ischemic cardiomyopathy; M48.02 Spinal stenosis, cervical region; D63.1 Anemia in chronic kidney disease; N18.9 Chronic kidney disease, unspecified; E11.22 Type 2 diabetes mellitus with diabetic chronic kidney disease; E66.01 Morbid (severe) obesity due to excess calories; I48.91 Unspecified atrial fibrillation; E78.5 Hyperlipidemia, unspecified; G47.33 Obstructive sleep apnea (adult) (pediatric); I25.2 Old myocardial infarction; Z95.5 Presence of coronary angioplasty implant and graft; Z95.810 Presence of automatic (implantable) cardiac defibrillator; Z68.38 Body mass index [BMI] 38.0-38.9, adult; Z88.0 Allergy status to penicillin; Z79.899 Other long term (current) drug therapy
CPT/HCPCS: 36415; 36600; 71045; 72170; 73560; 80048; 80053; 80061; 82375; 82607; 82805; 82962; 83036; 83735; 83880; 84443; 84484; 85025; 87426; 93005; 93306; 94640; 94660; 97116; 97162; 97164; 97166; 97530; 99291; C1893; C9803; J1650; J1815; J1940; J1956; J2060; J2930; J3475

== ENCOUNTER 2022-07-27 02:57 | Inpatient (IN) | payer BC, MEDICAID ==
[~2022-07-27] VITALS: Ht 185.4 cm; Wt 129.3 kg
[~2022-07-27 02:57] MED LIST changes: +LEVO250T74 MT
[2022-07-27] MEDS ORDERED: SODIUM CHLORIDE 0.9% 1,000 ML IV ONE (03:30)
[2022-07-27] MEDS ORDERED: LEVETIRACETAM 1000MG PREMIX 100 ML IV ONE (03:30)
[2022-07-27 04:25] LABS: BASOPHILS % 0.7 % (0.0-2.0); EOSINOPHILS % 2.4 % (0.0-5.0); HEMATOCRIT. 34.7 % (42.0-52.0); HEMOGLOBIN. 10.7 g/dL (14.0-18.0); LYMPHOCYTES % 30.1 % (20.0-50.0); MEAN CORPUSCULAR HEMOGLOBIN 22.3 pg (28.0-32.0); MEAN CORPUSCULAR VOLUME 72.6 fL (80.0-94.0); MEAN PLATELET VOLUME 8.8 fl (7.4-10.4); MONOCYTES % 11.4 % (2.0-8.0); NEUTROPHILS % 55.4 % (40.0-76.0); PLATELET 245 x1000/uL (130-400); RED BLOOD CELL COUNT 4.77 mill/uL (4.7-6.1); RED CELL DISTRIBUTION WIDTH 24.2 % (11.6-14.6)
[2022-07-27 04:47] LABS: CHLORIDE 106 mEq/L (98-107)
[2022-07-27] MEDS ORDERED: FUROSEMIDE 40MG/4ML VIAL IVP ONE (05:15)
[2022-07-27 06:36] LABS: CLARITY URINE CLEAR (CLEAR); COLOR URINE YELLOW (YELLOW); KETONES URINE NEGATIVE (NEGATIVE); LEUKOCYTE ESTERASE URINE 1+ (NEGATIVE); NITRITE URINE NEGATIVE (NEGATIVE); OCCULT BLOOD URINE NEGATIVE (NEGATIVE); PH URINE 5.5 (4.5-8.0); PROTEIN URINE NEGATIVE (NEGATIVE); SPECIFIC GRAVITY URINE 1.014 (1.005-1.030)
[2022-07-27 07:07] LABS: PLATELET ESTIMATE NORMAL
[2022-07-27] MEDS ORDERED: ASPIRIN 81MG TABLET PO ONE (08:00)
[2022-07-27] MEDS ORDERED: ONDANSETRON HCL 4MG/2ML INJ IV PRN (13:30)
[2022-07-27] MEDS ORDERED: ACETAMINOPHEN 325MG TABLET PO PRN (13:30)
[2022-07-27 14:00] VITALS: BP 118/86
[2022-07-27] MEDS: FUROSEMIDE 40MG/4ML VIAL IVP SCH (15:04)
[2022-07-27] MEDS: APIXABAN 5 MG TABLET PO SCH ×2 (15:04→17:39)
[2022-07-27 16:00] VITALS: BP 121/88
[2022-07-27] MEDS ORDERED: TAMS-11 PO (16:32)
[2022-07-27] MEDS ORDERED: POTA-204 PO (16:32)
[2022-07-27] MEDS ORDERED: METO5TAB7 PO (16:32)
[2022-07-27] MEDS ORDERED: DUTA0.5C37 PO (16:32)
[2022-07-27] MEDS ORDERED: XAR15 GT (16:32)
[2022-07-27] MEDS ORDERED: FURO40TA5 PO (16:32)
[2022-07-27] MEDS ORDERED: GLIP5TAB12 PO (16:32)
[2022-07-27] MEDS ORDERED: CARV12.545 PO (16:32)
[2022-07-27] MEDS ORDERED: ATOR20TA65 PO (16:32)
[2022-07-27] MEDS ORDERED: AMIO100T4 PO (16:32)
[2022-07-27 20:00] VITALS: BP 132/68
[2022-07-27] MEDS: LEVETIRACETAM 500MG TABLET PO SCH (21:31)
[2022-07-28] VITALS: BP 129/71
[2022-07-28 04:00] VITALS: BP 125/62
[2022-07-28 07:18] LABS: BASOPHILS % 0.5 % (0.0-2.0); EOSINOPHILS % 3.9 % (0.0-5.0); HEMATOCRIT. 35.8 % (42.0-52.0); HEMOGLOBIN. 11.4 g/dL (14.0-18.0); LYMPHOCYTES % 33.5 % (20.0-50.0); MEAN CORPUSCULAR HEMOGLOBIN 22.8 pg (28.0-32.0); MEAN CORPUSCULAR VOLUME 71.5 fL (80.0-94.0); MEAN PLATELET VOLUME 9.1 fl (7.4-10.4); MONOCYTES % 10.1 % (2.0-8.0); PLATELET 277 x1000/uL (130-400); RED CELL DISTRIBUTION WIDTH 23.9 % (11.6-14.6)
[2022-07-28 08:00] VITALS: BP 120/86
[2022-07-28 08:04] LABS: VITAMIN B12 SERUM 353 pg/mL (211-911)
[2022-07-28] MEDS: APIXABAN 5 MG TABLET PO SCH ×2 (08:50→18:09)
[2022-07-28] MEDS: FUROSEMIDE 40MG/4ML VIAL IVP SCH (08:50)
[2022-07-28] MEDS: LEVETIRACETAM 500MG TABLET PO SCH ×2 (08:50→21:41)
[2022-07-28] MEDS ORDERED: POTASSIUM CHLORIDE 20MEQ TABLET SR PO NR (11:00)
[2022-07-28] MEDS: ASPIRIN 81MG TABLET PO SCH (11:57)
[2022-07-28] MEDS: AMIODARONE HCL 200 MG TABLET PO SCH (11:58)
[2022-07-28 12:00] VITALS: BP 114/80
[2022-07-28 16:28] VITALS: BP 112/84
[2022-07-28 20:00] VITALS: BP 115/74
[2022-07-28] MEDS: CARVEDILOL 3.125 MG TABLET PO SCH (21:41)
[2022-07-28] MEDS: ATORVASTATIN CALCIUM 20MG TABLET PO SCH (21:42)
[2022-07-29] VITALS (7 sets, daily range): BP systolic 97–125; BP diastolic 58–95
[2022-07-29 05:49] LABS: BASOPHILS % 0.6 % (0.0-2.0); EOSINOPHILS % 3.2 % (0.0-5.0); HEMATOCRIT. 35.4 % (42.0-52.0); HEMOGLOBIN. 11.3 g/dL (14.0-18.0); LYMPHOCYTES % 35.9 % (20.0-50.0); MEAN CORPUSCULAR HEMOGLOBIN 22.6 pg (28.0-32.0); MEAN CORPUSCULAR VOLUME 71.1 fL (80.0-94.0); MEAN PLATELET VOLUME 8.4 fl (7.4-10.4); MONOCYTES % 10.3 % (2.0-8.0); PLATELET 273 x1000/uL (130-400); RED BLOOD CELL COUNT 4.98 mill/uL (4.7-6.1); RED CELL DISTRIBUTION WIDTH 23.6 % (11.6-14.6)
[2022-07-29] MEDS: FUROSEMIDE 40MG/4ML VIAL IVP SCH (09:47)
[2022-07-29] MEDS: CARVEDILOL 3.125 MG TABLET PO SCH ×2 (09:47→21:00)
[2022-07-29] MEDS: LEVETIRACETAM 500MG TABLET PO SCH ×2 (09:47→21:08)
[2022-07-29] MEDS: AMIODARONE HCL 200 MG TABLET PO SCH (09:47)
[2022-07-29] MEDS: ASPIRIN 81MG TABLET PO SCH (09:47)
[2022-07-29] MEDS: APIXABAN 5 MG TABLET PO SCH ×2 (09:47→17:00)
[2022-07-29] MEDS ORDERED: KEPP500 MT (13:48)
[2022-07-29] MEDS: ATORVASTATIN CALCIUM 20MG TABLET PO SCH (21:09)
[2022-07-30 04:00] VITALS: BP 116/75
[2022-07-30 08:00] VITALS: BP 122/86
[2022-07-30] MEDS: ASPIRIN 81MG TABLET PO SCH (10:09)
[2022-07-30] MEDS: LEVETIRACETAM 500MG TABLET PO SCH (10:09)
[2022-07-30] MEDS: FUROSEMIDE 40MG/4ML VIAL IVP SCH (10:09)
[2022-07-30] MEDS: AMIODARONE HCL 200 MG TABLET PO SCH (10:09)
[2022-07-30] MEDS: ATORVASTATIN CALCIUM 20MG TABLET PO SCH (10:10)
[2022-07-30] MEDS: CARVEDILOL 3.125 MG TABLET PO SCH (10:10)
[2022-07-30] MEDS ORDERED: DOCUSATE SODIUM 250MG CAPSULE PO SCH (10:30)
== END 2022-07-30 16:00 | disposition home health service (06) | DRG 100 ==
LOC: ER 02:57 → 7WST 13:24
PROVIDERS: ADMIT Internal Medicine Pulmonary Disease; ATTEND Internal Medicine Pulmonary Disease
PROC: 4A00X4Z Measurement of Central Nervous Electrical Activity, External Approach (ICD-10-PCS; principal; 2022-07-29)
DX: R56.9 Unspecified convulsions (principal); I50.23 Acute on chronic systolic (congestive) heart failure; I13.0 Hypertensive heart and chronic kidney disease with heart failure and stage 1 through stage 4 chronic kidney disease, or unspecified chronic kidney disease; N17.9 Acute kidney failure, unspecified; G90.8 Other disorders of autonomic nervous system; E11.22 Type 2 diabetes mellitus with diabetic chronic kidney disease; E66.01 Morbid (severe) obesity due to excess calories; J44.9 Chronic obstructive pulmonary disease, unspecified; N18.9 Chronic kidney disease, unspecified; I48.0 Paroxysmal atrial fibrillation; Z68.36 Body mass index [BMI] 36.0-36.9, adult; E78.5 Hyperlipidemia, unspecified; I25.10 Atherosclerotic heart disease of native coronary artery without angina pectoris; I25.5 Ischemic cardiomyopathy; M48.02 Spinal stenosis, cervical region; I25.2 Old myocardial infarction; Z86.73 Personal history of transient ischemic attack (TIA), and cerebral infarction without residual deficits; Z87.891 Personal history of nicotine dependence; Z95.810 Presence of automatic (implantable) cardiac defibrillator; Z88.0 Allergy status to penicillin
CPT/HCPCS: 36415; 71045; 80048; 80053; 81003; 82607; 83605; 83735; 84443; 84484; 85025; 93005; 95816; 97116; 97162; 97166; 97535; 99285; J1940; J1953; J7030

== ENCOUNTER 2022-09-07 09:45 | Emergency (ER) | payer BC, MEDICAID, MEDICARE ==
[~2022-09-07] VITALS: Ht 177.8 cm; Wt 95.0 kg
[~2022-09-07 09:45] MED LIST changes: +AMIO100T4 PO; +ATOR20TA65 PO; +CARV12.545 PO; +DUTA0.5C37 PO; +FURO40TA5 PO; +GLIP5TAB12 PO; +KEPP500 MT; -LEVO250T74 MT; +METO5TAB7 PO; +POTA-204 PO
[2022-09-07 10:34] LABS: BASOPHILS % 0.9 % (0.0-2.0); EOSINOPHILS % 2.3 % (0.0-5.0); HEMATOCRIT. 38.8 % (42.0-52.0); HEMOGLOBIN. 12.2 g/dL (14.0-18.0); LYMPHOCYTES % 32.7 % (20.0-50.0); MEAN CORPUSCULAR HEMOGLOBIN 24.5 pg (28.0-32.0); MEAN CORPUSCULAR VOLUME 78.2 fL (80.0-94.0); MEAN PLATELET VOLUME 8.9 fl (7.4-10.4); MONOCYTES % 10.3 % (2.0-8.0); NEUTROPHILS % 53.8 % (40.0-76.0); PLATELET 192 x1000/uL (130-400); RED BLOOD CELL COUNT 4.96 mill/uL (4.7-6.1); RED CELL DISTRIBUTION WIDTH 20.9 % (11.6-14.6)
[2022-09-07 10:40] LABS: CHLORIDE 107 mEq/L (98-107)
[2022-09-07 10:43] LABS: INR 1.1; PARTIAL THROMBOPLASTIN TIME 23.8 sec (23.4-31.0); PROTHROMBIN TIME 11.8 sec (9.6-11.0)
[2022-09-07] MEDS ORDERED: FUROSEMIDE 40MG/4ML VIAL IVP ONE (12:45)
[2022-09-07 13:13] VITALS: BP 130/54
[2022-09-07] MEDS ORDERED: LEVETIRACETAM 500MG PREMIX 100 ML IV ONE (13:15)
[2022-09-07] MEDS ORDERED: LEVETIRACETAM 500MG TABLET PO ONE (13:30)
== END 2022-09-07 13:32 | disposition home or self-care (01) ==
LOC: ER 09:51
DX: R56.9 Unspecified convulsions (principal); I13.0 Hypertensive heart and chronic kidney disease with heart failure and stage 1 through stage 4 chronic kidney disease, or unspecified chronic kidney disease; E11.22 Type 2 diabetes mellitus with diabetic chronic kidney disease; N18.9 Chronic kidney disease, unspecified; I50.9 Heart failure, unspecified; J44.9 Chronic obstructive pulmonary disease, unspecified; Z88.0 Allergy status to penicillin
CPT/HCPCS: 36415; 70450; 71045; 80053; 83880; 84484; 85025; 85610; 85730; 93005; 96374; 99285; J1940